=== PATIENT | male | born 1985 | race Caucasian/White ===

== ENCOUNTER 2021-02-26 20:20 | Inpatient (IN) | payer BC, OTHER, SELFPAY ==
[~2021-02-26 20:20] MED LIST: Iopamidol-370 76% 500 ML 1 ML ONE
[2021-02-26 20:38] LABS: Actual Bicarbonate (HCO3a) 20.7 mEq/L (22-28); Analyzer IN Cardio ER; Base Excess (BEa) -0.7 mEq/L (-2.0 to +3.0); CO2 Tension 27.3 mmHg (35.0-45.0); Carboxyhemoglobin (COHb) 0.8 gm% (0.0-3.0); Hemoglobin (Hb) 17.3 g/dL (14.0-18.0); O2 Tension (PaO2), arterial 79.3 mmHg (80.0-100.0); Potassium - ABG Lab 3.94 mmol/L (3.70-5.30)
[2021-02-26] MEDS ORDERED: Acetaminophen 500 MG TAB ONE (20:39)
[2021-02-26] MEDS ORDERED: Dexamethasone 4 mg/ml Vial ONE (20:39)
[2021-02-26 20:40] LABS: ALV-art Gradient 599.575 mmHg (0-20); Puncture Site RRA
[2021-02-26 21:29] LABS: Hemoglobin 17.2 g/dL (14.0-18.0); Mean Corpuscular Hemoglobin 34.7 pg (27.0-31.0); Mean Corpuscular Volume 96.3 fL (78.0-98.0); RBC Distribution Width 11.7 % (11.5-14.5); Red Blood Cell (RBC) Count 4.95 mill/uL (4.70-6.10); White Blood Cell (WBC) Count 17.8 thou/uL (4.8-10.8)
[2021-02-26 21:31] LABS: Band 20 % (5-11); Lymphocytes 3 % (21-51); MDiff Complete? YES; Mean Platelet Volume 8.5 fL (7.4-10.4); Monocytes 2 % (0-10); Neutrophil 75 % (42-75); Platelet Count 189 thou/uL (130-400)
[2021-02-26 21:42] LABS: Albumin 3.1 g/dL (3.5-5.0)
[2021-02-26 21:44] LABS: Calcium 7.9 mg/dL (7.8-10.44); Chloride 100 mmol/L (98-107); Potassium 4.3 mmol/L (3.5-5.1); Sodium 135 mmol/L (136-145)
[2021-02-26 21:45] LABS: Globulin 2.6 g/dL (2.4-3.5); Glucose 121 mg/dL (70-105); Protein, Total 5.7 g/dL (6.0-8.3)
[2021-02-26 21:46] LABS: Anion Gap 14 mmol/L (10-20); Carbon Dioxide 25 mmol/L (22-29)
[2021-02-26 21:47] LABS: Bilirubin, Total 0.7 mg/dL (0.2-1.2)
[2021-02-26 21:48] LABS: Alkaline Phosphatase 77 U/L (40-110)
[2021-02-26 21:49] LABS: BUN (Urea Nitrogen) 28 mg/dL (8.9-20.6); Calc. Creatinine Clearance 0 mL/min (70-130)
[2021-02-26 21:50] LABS: AST (SGOT) 82 U/L (5-34)
[2021-02-26 21:51] LABS: ALT (SGPT) 50 U/L (8-55)
[2021-02-26] MEDS ORDERED: Vancomycin 1 GM/200 ML BAG ONE (21:59)
[2021-02-26] MEDS ORDERED: Enoxaparin Sodium 80 MG/0.8 ML SYRINGE ONE (21:59)
[2021-02-26] MEDS ORDERED: Cefepime 2 GM VIAL ONE (21:59)
[2021-02-26] MEDS ORDERED: Enoxaparin Sodium 60 MG/0.6 ML SYRINGE ONE (21:59)
[2021-02-26] MEDS ORDERED: Enoxaparin Sodium 40 MG/0.4 ML SYRINGE ONE (22:00)
[2021-02-26] MEDS ORDERED: Ondansetron ODT 4 MG TAB PO PRN (23:37)
[2021-02-27 00:24] LABS: Lactic Acid 1.4 mmol/L (0.5-2.2)
[2021-02-27] MEDS ORDERED: traZODone HCl 50 MG TAB PO SCH (00:30)
[2021-02-27] MEDS ORDERED: Morphine 2 MG/ML VIAL SLOW IVP SCH (03:30)
[2021-02-27] MEDS ORDERED: Pantoprazole 40 MG VIAL IVP SCH (03:30)
[2021-02-27 04:35] LABS: Hemoglobin 16.3 g/dL (14.0-18.0); Mean Corpuscular HGB CONC 34.2 g/dL (32.0-36.0); Mean Corpuscular Hemoglobin 33.1 pg (27.0-31.0); Mean Corpuscular Volume 96.7 fL (78.0-98.0); Mean Platelet Volume 8.8 fL (7.4-10.4); Platelet Count 175 thou/uL (130-400); RBC Distribution Width 11.7 % (11.5-14.5); Red Blood Cell (RBC) Count 4.93 mill/uL (4.70-6.10); White Blood Cell (WBC) Count 17.2 thou/uL (4.8-10.8)
[2021-02-27 04:41] LABS: Anion Gap 14 mmol/L (10-20); BUN (Urea Nitrogen) 26 mg/dL (8.9-20.6); Calc. Creatinine Clearance 162 mL/min (70-130); Calcium 8.5 mg/dL (7.8-10.44); Carbon Dioxide 21 mmol/L (22-29); Chloride 104 mmol/L (98-107); Glucose 141 mg/dL (70-105); Potassium 4.4 mmol/L (3.5-5.1); Sodium 135 mmol/L (136-145)
[2021-02-27 05:55] LABS: Band 16 % (5-11); Lymphocytes 5 % (21-51); MDiff Complete? YES; Monocytes 1 % (0-10); Neutrophil 78 % (42-75)
[2021-02-27] MEDS: Acetaminophen 325 MG TAB PO PRN ×3 (06:24→23:08)
[2021-02-27] MEDS ORDERED: Bisacodyl 5 MG TAB PO PRN (07:09)
[2021-02-27] MEDS ORDERED: Hydrocerin (Eucerin) Cream 120 gm Jar TOP PRN (07:09)
[2021-02-27] MEDS ORDERED: Calcium Carbonate 500 MG ChewTAB PO PRN (07:09)
[2021-02-27] MEDS ORDERED: Sodium Chloride 0.65% Nasal 44 ML BOT EA NARE PRN (07:09)
[2021-02-27] MEDS ORDERED: hydrALAZINE 20 MG/ML VIAL SLOW IVP PRN (07:09)
[2021-02-27] MEDS ORDERED: Loratadine 10 MG TAB PO PRN (07:09)
[2021-02-27] MEDS ORDERED: Cepastat Lozenges 1 LOZ PO PRN (07:09)
[2021-02-27] MEDS ORDERED: Artificial Tear Sol 15 ML BOT EA EYE PRN (07:09)
[2021-02-27] MEDS ORDERED: Albuterol 200 PUFF (6.7GM INHALER) INH PRN (07:23)
[2021-02-27] MEDS: Cholecalciferol 1,000 UNITS (25 MCG) TAB PO SCH (08:27)
[2021-02-27] MEDS: Ascorbic Acid 500 mg Chewable Tablet PO SCH (08:27)
[2021-02-27] MEDS: Pantoprazole 40 MG VIAL IVP SCH (08:27)
[2021-02-27] MEDS: Enoxaparin Sodium 120 MG/0.8 ML SYRINGE SC SCH ×2 (08:27→19:56)
[2021-02-27] MEDS: Zinc Sulfate 220 MG CAP PO SCH (08:28)
[2021-02-27] MEDS ORDERED: Dexamethasone 4 mg/ml Vial SLOW IVP SCH (09:00)
[2021-02-27] MEDS ORDERED: Cholecalciferol (Vitamin D3) 400 UNITS TAB PO SCH (09:00)
[2021-02-27] MEDS: methylPREDNISolone Sod Succ/PF 125 MG in Sodium Chloride 0.9% 250 ML 250 ML IVPB SCH (11:29)
[2021-02-27] MEDS: Benzonatate 100 MG CAP PO PRN ×2 (12:59→23:08)
[2021-02-27] MEDS: GUAIFENESIN SF SOLN 200 MG/10 ML UDCUP PO PRN ×2 (17:52→23:07)
[2021-02-27] MEDS: Colchicine 0.6 MG TAB PO SCH (19:58)
[2021-02-28] MEDS: Acetaminophen 325 MG TAB PO PRN ×2 (03:47→08:21)
[2021-02-28] MEDS: GUAIFENESIN SF SOLN 200 MG/10 ML UDCUP PO PRN ×3 (03:47→21:41)
[2021-02-28] MEDS: Benzonatate 100 MG CAP PO PRN ×2 (03:47→21:41)
[2021-02-28 04:21] LABS: #Lymphocytes 0.6 thou/uL (1.20-3.40); #Monocytes 0.4 thou/uL (0.11-0.59); #Neutrophils 12.1 thou/uL (1.40-6.50); %Basophils 0.1 % (0.0-1.0); %Lymphocytes 4.7 % (21.0-51.0); %Neutrophils 92.1 % (42.0-75.0); Hemoglobin 15.7 g/dL (14.0-18.0); Mean Corpuscular HGB CONC 34.6 g/dL (32.0-36.0); Mean Corpuscular Hemoglobin 33.6 pg (27.0-31.0); Mean Corpuscular Volume 96.9 fL (78.0-98.0); Mean Platelet Volume 8.6 fL (7.4-10.4); Platelet Count 209 thou/uL (130-400); RBC Distribution Width 11.5 % (11.5-14.5); Red Blood Cell (RBC) Count 4.67 mill/uL (4.70-6.10); White Blood Cell (WBC) Count 13.1 thou/uL (4.8-10.8)
[2021-02-28 04:43] LABS: ALT (SGPT) 41 U/L (8-55); AST (SGOT) 39 U/L (5-34); Albumin 2.6 g/dL (3.5-5.0); Alkaline Phosphatase 67 U/L (40-110); Anion Gap 12 mmol/L (10-20); BUN (Urea Nitrogen) 27 mg/dL (8.9-20.6); Bilirubin, Total 0.7 mg/dL (0.2-1.2); Calc. Creatinine Clearance 174 mL/min (70-130); Calcium 8.5 mg/dL (7.8-10.44); Carbon Dioxide 23 mmol/L (22-29); Chloride 103 mmol/L (98-107); Glucose 159 mg/dL (70-105); Potassium 4.3 mmol/L (3.5-5.1); Protein, Total 5.6 g/dL (6.0-8.3); Sodium 134 mmol/L (136-145)
[2021-02-28] MEDS: Enoxaparin Sodium 120 MG/0.8 ML SYRINGE SC SCH ×2 (08:16→21:41)
[2021-02-28] MEDS: Cholecalciferol 1,000 UNITS (25 MCG) TAB PO SCH (08:17)
[2021-02-28] MEDS: Pantoprazole 40 MG VIAL IVP SCH (08:17)
[2021-02-28] MEDS: Ascorbic Acid 500 mg Chewable Tablet PO SCH (08:17)
[2021-02-28] MEDS: Colchicine 0.6 MG TAB PO SCH ×2 (08:17→21:41)
[2021-02-28] MEDS: Zinc Sulfate 220 MG CAP PO SCH (08:17)
[2021-02-28] MEDS: methylPREDNISolone Sod Succ/PF 125 MG in Sodium Chloride 0.9% 250 ML 250 ML IVPB SCH (10:59)
[2021-03-01] MEDS: Zinc Sulfate 220 MG CAP PO SCH (08:19)
[2021-03-01] MEDS: Colchicine 0.6 MG TAB PO SCH ×2 (08:19→20:05)
[2021-03-01] MEDS: Ascorbic Acid 500 mg Chewable Tablet PO SCH (08:19)
[2021-03-01] MEDS: Cholecalciferol 1,000 UNITS (25 MCG) TAB PO SCH (08:19)
[2021-03-01] MEDS: Benzonatate 100 MG CAP PO PRN ×2 (08:20→20:05)
[2021-03-01] MEDS: Enoxaparin Sodium 120 MG/0.8 ML SYRINGE SC SCH ×2 (08:20→20:05)
[2021-03-01] MEDS: GUAIFENESIN SF SOLN 200 MG/10 ML UDCUP PO PRN ×2 (08:20→20:05)
[2021-03-01] MEDS: Pantoprazole 40 MG GRANULES PACKET PO SCH (08:20)
[2021-03-01] MEDS: methylPREDNISolone Sod Succ/PF 125 MG in Sodium Chloride 0.9% 250 ML 250 ML IVPB SCH (08:26)
[2021-03-01] MEDS: HYDROcodone/Acetaminophen 5/325 mg Tablet PO PRN ×2 (10:57→21:50)
[2021-03-01] MEDS: Morphine 4 MG/ML VIAL SLOW IVP PRN ×3 (16:49→23:37)
[2021-03-01] MEDS: guaiFENesin ER 600 MG TAB PO SCH (20:05)
[2021-03-01] MEDS: Senokot S 8.6-50 MG TAB PO PRN (20:07)
[2021-03-02] MEDS: HYDROcodone/Acetaminophen 5/325 mg Tablet PO PRN ×3 (01:51→21:00)
[2021-03-02 04:00] LABS: Anion Gap 10 mmol/L (10-20); BUN (Urea Nitrogen) 22 mg/dL (8.9-20.6); CRP (Inflammatory) 12.89 mg/dL (= or < 0.5); Calc. Creatinine Clearance 208 mL/min (70-130); Calcium 8.1 mg/dL (7.8-10.44); Carbon Dioxide 24 mmol/L (22-29); Chloride 101 mmol/L (98-107); Glucose 128 mg/dL (70-105); Magnesium 2.3 mg/dL (1.6-2.6); Phosphorus 2.5 mg/dL (2.3-4.7); Potassium 4.7 mmol/L (3.5-5.1); Sodium 130 mmol/L (136-145)
[2021-03-02 04:40] LABS: Hemoglobin 15.6 g/dL (14.0-18.0); Mean Corpuscular HGB CONC 34.7 g/dL (32.0-36.0); Mean Corpuscular Hemoglobin 33.3 pg (27.0-31.0); Mean Corpuscular Volume 96.1 fL (78.0-98.0); Mean Platelet Volume 8.4 fL (7.4-10.4); Platelet Count 238 thou/uL (130-400); RBC Distribution Width 11.4 % (11.5-14.5); Red Blood Cell (RBC) Count 4.68 mill/uL (4.70-6.10); White Blood Cell (WBC) Count 16.1 thou/uL (4.8-10.8)
[2021-03-02 04:42] LABS: Band 11 % (5-11); Lymphocytes 8 % (21-51); MDiff Complete? YES; Neutrophil 81 % (42-75); RBC Morphology Normal; Toxic Granulation SLIGHT
[2021-03-02] MEDS: Morphine 4 MG/ML VIAL SLOW IVP PRN ×5 (04:56→15:36)
[2021-03-02] MEDS: Zinc Sulfate 220 MG CAP PO SCH (08:06)
[2021-03-02] MEDS: guaiFENesin ER 600 MG TAB PO SCH ×2 (08:07→21:01)
[2021-03-02] MEDS: Enoxaparin Sodium 120 MG/0.8 ML SYRINGE SC SCH ×2 (08:07→20:59)
[2021-03-02] MEDS: Pantoprazole 40 MG GRANULES PACKET PO SCH (08:07)
[2021-03-02] MEDS: Cholecalciferol 1,000 UNITS (25 MCG) TAB PO SCH (08:07)
[2021-03-02] MEDS: Ascorbic Acid 500 mg Chewable Tablet PO SCH (08:07)
[2021-03-02] MEDS: Colchicine 0.6 MG TAB PO SCH ×2 (08:07→21:00)
[2021-03-02] MEDS: GUAIFENESIN SF SOLN 200 MG/10 ML UDCUP PO PRN ×2 (08:10→21:06)
[2021-03-02] MEDS: Benzonatate 100 MG CAP PO PRN ×2 (08:10→21:06)
[2021-03-02] MEDS ORDERED: fentaNYL 75 mcg/hour Patch TD SCH (10:00)
[2021-03-02] MEDS: methylPREDNISolone Sod Succ/PF 125 MG in Sodium Chloride 0.9% 250 ML 250 ML IVPB SCH (10:26)
[2021-03-02] MEDS: Senokot S 8.6-50 MG TAB PO PRN (21:06)
[2021-03-03] MEDS: HYDROcodone/Acetaminophen 5/325 mg Tablet PO PRN ×3 (02:24→20:03)
[2021-03-03] MEDS: GUAIFENESIN SF SOLN 200 MG/10 ML UDCUP PO PRN ×3 (02:24→20:04)
[2021-03-03 04:18] LABS: Anion Gap 12 mmol/L (10-20); BUN (Urea Nitrogen) 18 mg/dL (8.9-20.6); Calc. Creatinine Clearance 204 mL/min (70-130); Calcium 8.9 mg/dL (7.8-10.44); Carbon Dioxide 25 mmol/L (22-29); Chloride 97 mmol/L (98-107); Glucose 171 mg/dL (70-105); Potassium 5.1 mmol/L (3.5-5.1); Sodium 129 mmol/L (136-145)
[2021-03-03 04:40] LABS: Band 7 % (5-11); Hemoglobin 15.8 g/dL (14.0-18.0); Lymphocytes 1 % (21-51); MDiff Complete? YES; Mean Corpuscular HGB CONC 35.4 g/dL (32.0-36.0); Mean Corpuscular Hemoglobin 34.4 pg (27.0-31.0); Mean Platelet Volume 8.7 fL (7.4-10.4); Monocytes 2 % (0-10); Neutrophil 90 % (42-75); Platelet Count 238 thou/uL (130-400); Platelet Morphology Comment Appears Adequate; RBC Distribution Width 11.2 % (11.5-14.5); RBC Morphology Normal; Red Blood Cell (RBC) Count 4.59 mill/uL (4.70-6.10); White Blood Cell (WBC) Count 25.7 thou/uL (4.8-10.8)
[2021-03-03] MEDS: guaiFENesin ER 600 MG TAB PO SCH ×2 (08:16→20:03)
[2021-03-03] MEDS: Colchicine 0.6 MG TAB PO SCH (08:16)
[2021-03-03] MEDS: Enoxaparin Sodium 120 MG/0.8 ML SYRINGE SC SCH ×2 (08:16→20:03)
[2021-03-03] MEDS: Ascorbic Acid 500 mg Chewable Tablet PO SCH (08:16)
[2021-03-03] MEDS: Cholecalciferol 1,000 UNITS (25 MCG) TAB PO SCH (08:16)
[2021-03-03] MEDS: Zinc Sulfate 220 MG CAP PO SCH (08:16)
[2021-03-03] MEDS: methylPREDNISolone Sod Succ/PF 125 MG in Sodium Chloride 0.9% 250 ML 250 ML IVPB SCH (08:17)
[2021-03-03] MEDS: Pantoprazole 40 MG GRANULES PACKET PO SCH (08:17)
[2021-03-03] MEDS: Morphine 4 MG/ML VIAL SLOW IVP PRN ×3 (11:57→22:23)
[2021-03-03] MEDS: Enalaprilat Dihydrate 1.25 MG/ML VIAL SLOW IVP SCH (20:02)
[2021-03-03] MEDS: Senokot S 8.6-50 MG TAB PO PRN (20:03)
[2021-03-03] MEDS: Benzonatate 100 MG CAP PO PRN (20:03)
[2021-03-03] MEDS: Acetaminophen 325 MG TAB PO PRN (22:23)
[2021-03-03] MEDS ORDERED: Enalaprilat Dihydrate 1.25 MG/ML VIAL SLOW IVP SCH (23:59)
[2021-03-04] MEDS: HYDROcodone/Acetaminophen 5/325 mg Tablet PO PRN ×4 (00:05→13:23)
[2021-03-04] MEDS: Morphine 4 MG/ML VIAL SLOW IVP PRN ×3 (00:12→13:26)
[2021-03-04] MEDS: GUAIFENESIN SF SOLN 200 MG/10 ML UDCUP PO PRN ×3 (00:16→13:24)
[2021-03-04 01:25] LABS: Hemoglobin 15.6 g/dL (14.0-18.0); Mean Corpuscular HGB CONC 35.1 g/dL (32.0-36.0); Mean Corpuscular Hemoglobin 33.9 pg (27.0-31.0); Mean Corpuscular Volume 96.4 fL (78.0-98.0); Mean Platelet Volume 8.6 fL (7.4-10.4); Platelet Count 304 thou/uL (130-400); RBC Distribution Width 11.2 % (11.5-14.5); White Blood Cell (WBC) Count 29.6 thou/uL (4.8-10.8)
[2021-03-04 01:35] LABS: Bacteria/HPF None Seen HPF (None Seen); Bilirubin Negative (Negative); Blood, Urine Trace (Negative); Clarity Clear (Clear); Glucose, Urine (Dipstick) Normal (Negative); Ketone, Urine Negative (Negative); Leukocyte Negative Leu/uL (Negative); Nitrite Negative (Negative); Protein, Urine (Dipstick) 70 mg/dL (Neg-Trace); Specific Gravity, Urine 1.032 (1.002-1.036); Squamous Epithelial None Seen HPF (0-3); Urobilinogen 6 mg/dL (Less than 2); WBC/HPF 0-3 HPF (0-3)
[2021-03-04 01:36] LABS: Urine Culture Reflex No No
[2021-03-04] MEDS: Benzonatate 100 MG CAP PO PRN ×2 (01:36→08:25)
[2021-03-04 01:47] LABS: ALT (SGPT) 44 U/L (8-55); AST (SGOT) 26 U/L (5-34); Albumin 2.6 g/dL (3.5-5.0); Alkaline Phosphatase 90 U/L (40-110); Anion Gap 12 mmol/L (10-20); BUN (Urea Nitrogen) 20 mg/dL (8.9-20.6); Bilirubin, Total 1.3 mg/dL (0.2-1.2); Calc. Creatinine Clearance 199 mL/min (70-130); Calcium 8.7 mg/dL (7.8-10.44); Carbon Dioxide 26 mmol/L (22-29); Chloride 91 mmol/L (98-107); Globulin 3.9 g/dL (2.4-3.5); Glucose 149 mg/dL (70-105); Protein, Total 6.5 g/dL (6.0-8.3); Sodium 124 mmol/L (136-145)
[2021-03-04 01:47] LABS: Band 17 % (5-11); MDiff Complete? YES; Monocytes 1 % (0-10); Neutrophil 82 % (42-75); Platelet Morphology Comment Appears Adequate; RBC Morphology Normal
[2021-03-04] MEDS: Enalaprilat Dihydrate 1.25 MG/ML VIAL SLOW IVP SCH ×3 (01:47→14:19)
[2021-03-04] MEDS: Colchicine 0.6 MG TAB PO SCH (08:23)
[2021-03-04] MEDS: Cholecalciferol 1,000 UNITS (25 MCG) TAB PO SCH (08:23)
[2021-03-04] MEDS: Acetaminophen 325 MG TAB PO PRN (08:23)
[2021-03-04] MEDS: Zinc Sulfate 220 MG CAP PO SCH (08:23)
[2021-03-04] MEDS: guaiFENesin ER 600 MG TAB PO SCH ×2 (08:25→20:56)
[2021-03-04] MEDS: Ascorbic Acid 500 mg Chewable Tablet PO SCH (08:25)
[2021-03-04] MEDS: Senokot S 8.6-50 MG TAB PO SCH ×3 (08:26→20:56)
[2021-03-04] MEDS: Enoxaparin Sodium 120 MG/0.8 ML SYRINGE SC SCH (08:26)
[2021-03-04] MEDS: Pantoprazole 40 MG GRANULES PACKET PO SCH (08:26)
[2021-03-04] MEDS: Polyethylene Glycol 3350 17 GM Packet PO SCH (08:26)
[2021-03-04] MEDS: methylPREDNISolone Sod Succ/PF 125 MG in Sodium Chloride 0.9% 250 ML 250 ML IVPB SCH (08:30)
[2021-03-04] MEDS ORDERED: NIFEdipine XL 30 MG TAB PO SCH (10:00)
[2021-03-04] MEDS: cloNIDine 0.1 MG TAB PO PRN (13:39)
[2021-03-04] MEDS ORDERED: Fentanyl CADD 100 ML ONE (15:57)
[2021-03-04] MEDS ORDERED: Propofol 1,000 MG/100 ML VIAL IV ONE (16:02)
[2021-03-04] MEDS ORDERED: Vecuronium 10 MG VIAL ONE ×2 (16:40→17:20)
[2021-03-04] MEDS ORDERED: Lidocaine 1% (PF) 30 ML VIAL ONE (16:42)
[2021-03-04 17:30] LABS: Actual Bicarbonate (HCO3a) 28.4 mEq/L (22-28); Base Excess (BEa) -0.7 mEq/L (-2.0 to +3.0); Calcium, Ionized (arterial) 1.15 mmol/L (1.12-1.30); Carboxyhemoglobin (COHb) 1.6 gm% (0.0-3.0); Hemoglobin (Hb) 15.1 g/dL (14.0-18.0); Potassium - ABG Lab 4.95 mmol/L (3.70-5.30)
[2021-03-04 17:33] LABS: CO2 Tension 66.9 mmHg (35.0-45.0); O2 Tension (PaO2), arterial 56.5 mmHg (80.0-100.0); pH, Arterial 7.25 (7.35-7.45)
[2021-03-04 17:34] LABS: ALV-art Gradient 287.675 mmHg (0-20); Puncture Site LRA
[2021-03-04] MEDS ORDERED: Ventilator Sedation Protocol 1 EACH FS ONE (17:37)
[2021-03-04] MEDS ORDERED: Rocuronium Bromide 10 MG/ML (10ML VIAL) IVP PRN (18:03)
[2021-03-04] MEDS ORDERED: Vecuronium Bromide 20 MG VIAL IV PRN (18:05)
[2021-03-04] MEDS ORDERED: MEROPENEM 1 GM/50 ML 1 GM in Premix Bag 1 BAG IVPB SCH (18:30)
[2021-03-04] MEDS: MEROPENEM 1 GM/50 ML 1 GM in Premix Bag 1 BAG IVPB SCH ×2 (18:32→19:49)
[2021-03-04] MEDS ORDERED: Propofol BOLUS 1,000 MG/100 ML VIAL IV PRN (18:45)
[2021-03-04] MEDS ORDERED: DISCONTINUE PREVIOUS NARCOTIC PAIN MEDICATIONS AND BENZODIAZEPINES FS SCH (18:45)
[2021-03-04] MEDS ORDERED: Fentanyl BOLUS 250 ML IVPB PRN (18:45)
[2021-03-04] MEDS ORDERED: Vancomycin 1 GM in Premix Bag 1 BAG IVPB SCH (20:00)
[2021-03-04] MEDS: Propofol 1,000 MG/100 ML VIAL IV PRN (20:49)
[2021-03-04] MEDS: Pantoprazole 40 MG VIAL IVP SCH (20:56)
[2021-03-04] MEDS: Enoxaparin Sodium 100 MG/ML SYRINGE SC SCH (20:56)
[2021-03-04] MEDS ORDERED: Meropenem 2 GM in Admixture Fee 1 EACH IVPB SCH (22:00)
[2021-03-04] MEDS: Sodium Chloride 0.45% 1,000 ML IV SCH (23:22)
[2021-03-04] MEDS ORDERED: VANCOMYCIN 1.75 GM/350 ML BAG 1.75 GM in Premix Bag 1 BAG IVPB SCH (23:59)
[2021-03-05] MEDS: Propofol 1,000 MG/100 ML VIAL IV PRN ×7 (00:29→22:36)
[2021-03-05] MEDS ORDERED: Vancomycin HCl 750 MG in Sodium Chloride 0.9% 250 ML 250 ML IVPB SCH (00:30)
[2021-03-05] MEDS: MEROPENEM 1 GM/50 ML 1 GM in Premix Bag 1 BAG IVPB SCH ×3 (01:56→18:17)
[2021-03-05] MEDS: Acetaminophen 650 MG Suppository PR PRN ×2 (02:59→11:21)
[2021-03-05] MEDS ORDERED: Fentanyl CADD 100 ML ONE ×2 (03:09→13:37)
[2021-03-05] MEDS: Fentanyl CADD 100 ML IV SCH ×2 (03:15→13:41)
[2021-03-05] MEDS ORDERED: Vecuronium 10 MG VIAL ONE ×2 (04:54→14:29)
[2021-03-05 05:38] LABS: Anion Gap 14 mmol/L (10-20); BUN (Urea Nitrogen) 26 mg/dL (8.9-20.6); Calc. Creatinine Clearance 175 mL/min (70-130); Calcium 8.5 mg/dL (7.8-10.44); Carbon Dioxide 27 mmol/L (22-29); Chloride 99 mmol/L (98-107); Glucose 187 mg/dL (70-105); Potassium 5.7 mmol/L (3.5-5.1); Sodium 134 mmol/L (136-145)
[2021-03-05 05:52] LABS: Band 33 % (5-11); Hemoglobin 14.2 g/dL (14.0-18.0); Lymphocytes 2 % (21-51); MDiff Complete? YES; Mean Corpuscular HGB CONC 31.8 g/dL (32.0-36.0); Mean Corpuscular Volume 97.6 fL (78.0-98.0); Mean Platelet Volume 9.4 fL (7.4-10.4); Metamyelocyte 3 % (0-0); Monocytes 3 % (0-10); Neutrophil 59 % (42-75); Platelet Count 231 thou/uL (130-400); Platelet Morphology Comment Appears Adequate; RBC Distribution Width 11.3 % (11.5-14.5); Red Blood Cell (RBC) Count 4.59 mill/uL (4.70-6.10); White Blood Cell (WBC) Count 13.2 thou/uL (4.8-10.8)
[2021-03-05 07:11] LABS: Actual Bicarbonate (HCO3a) 26.4 mEq/L (22-28); Base Excess (BEa) 0.5 mEq/L (-2.0 to +3.0); CO2 Tension 47.3 mmHg (35.0-45.0); Calcium, Ionized (arterial) 1.16 mmol/L (1.12-1.30); Carboxyhemoglobin (COHb) 0.8 gm% (0.0-3.0); Hemoglobin (Hb) 15.3 g/dL (14.0-18.0); Potassium - ABG Lab 5.39 mmol/L (3.70-5.30); pH, Arterial 7.37 (7.35-7.45)
[2021-03-05 07:12] LABS: O2 Tension (PaO2), arterial 55.4 mmHg (80.0-100.0)
[2021-03-05 07:13] LABS: ALV-art Gradient 313.275 mmHg (0-20); Puncture Site LRA
[2021-03-05] MEDS: VANCOMYCIN 1.75 GM/350 ML BAG 1.75 GM in Premix Bag 1 BAG IVPB SCH ×2 (07:50→15:48)
[2021-03-05] MEDS: Senokot S 8.6-50 MG TAB PO SCH ×2 (07:58→21:02)
[2021-03-05] MEDS: Zinc Sulfate 220 MG CAP PO SCH (07:59)
[2021-03-05] MEDS: Cholecalciferol 1,000 UNITS (25 MCG) TAB PO SCH (07:59)
[2021-03-05] MEDS: Ascorbic Acid 500 mg Chewable Tablet PO SCH (07:59)
[2021-03-05] MEDS: Enoxaparin Sodium 100 MG/ML SYRINGE SC SCH ×2 (08:00→21:02)
[2021-03-05] MEDS: Polyethylene Glycol 3350 17 GM Packet PO SCH (08:01)
[2021-03-05] MEDS: Pantoprazole 40 MG VIAL IVP SCH ×2 (08:02→21:03)
[2021-03-05] MEDS: Colchicine 0.6 MG TAB PO SCH (08:08)
[2021-03-05] MEDS: guaiFENesin ER 600 MG TAB PO SCH (08:08)
[2021-03-05] MEDS ORDERED: NIFEdipine XL 30 MG TAB PO SCH (09:00)
[2021-03-05] MEDS ORDERED: Enoxaparin Sodium 100 MG/ML SYRINGE SC SCH (09:00)
[2021-03-05] MEDS ORDERED: guaiFENesin 200 MG TAB PO SCH (11:00)
[2021-03-05] MEDS: methylPREDNISolone Sod Succ/PF 125 MG in Sodium Chloride 0.9% 250 ML 250 ML IVPB SCH (11:09)
[2021-03-05] MEDS: Dexmedetomidine 1,000 MCG in Sodium Chloride 0.9% 250 ML 240 ML IVPB SCH ×2 (13:26→19:24)
[2021-03-05] MEDS: Vecuronium 10 MG VIAL IV PRN ×2 (18:06→22:37)
[2021-03-05] MEDS: Acetaminophen 650 MG/20.3 ML UDCUP PO PRN (18:17)
[2021-03-05] MEDS: guaiFENesin 200 MG TAB PO SCH (21:02)
[2021-03-05 23:43] LABS: Vancomycin, Trough 11.5 ug/mL
[2021-03-06] MEDS: VANCOMYCIN 1.75 GM/350 ML BAG 1.75 GM in Premix Bag 1 BAG IVPB SCH (00:21)
[2021-03-06] MEDS ORDERED: Fentanyl CADD 100 ML ONE ×3 (00:21→22:39)
[2021-03-06] MEDS: VANCOMYCIN 2 GRAM/400 ML BAG 2 GM in Premix Bag 1 BAG IVPB SCH ×3 (00:27→16:08)
[2021-03-06] MEDS: Sodium Chloride 0.45% 1,000 ML IV SCH ×2 (00:27→23:03)
[2021-03-06] MEDS: Dexmedetomidine 1,000 MCG in Sodium Chloride 0.9% 250 ML 240 ML IVPB SCH ×4 (00:27→19:08)
[2021-03-06] MEDS: Fentanyl CADD 100 ML IV SCH ×2 (00:28→22:42)
[2021-03-06] MEDS: Propofol 1,000 MG/100 ML VIAL IV PRN ×8 (00:28→23:04)
[2021-03-06] MEDS: MEROPENEM 1 GM/50 ML 1 GM in Premix Bag 1 BAG IVPB SCH ×2 (02:15→10:00)
[2021-03-06 04:30] LABS: Anion Gap 11 mmol/L (10-20); BUN (Urea Nitrogen) 29 mg/dL (8.9-20.6); Calc. Creatinine Clearance 192 mL/min (70-130); Calcium 8.1 mg/dL (7.8-10.44); Carbon Dioxide 29 mmol/L (22-29); Chloride 100 mmol/L (98-107); Glucose 186 mg/dL (70-105); Potassium 5.4 mmol/L (3.5-5.1); Sodium 135 mmol/L (136-145)
[2021-03-06 04:36] LABS: Band 8 % (5-11); Hemoglobin 13.9 g/dL (14.0-18.0); Lymphocytes 4 % (21-51); MDiff Complete? YES; Mean Corpuscular HGB CONC 33.4 g/dL (32.0-36.0); Mean Corpuscular Hemoglobin 33.4 pg (27.0-31.0); Mean Corpuscular Volume 99.9 fL (78.0-98.0); Mean Platelet Volume 9.4 fL (7.4-10.4); Neutrophil 86 % (42-75); Platelet Count 224 thou/uL (130-400); Platelet Morphology Comment Appears Adequate; RBC Distribution Width 11.4 % (11.5-14.5); RBC Morphology Normal; Reactive Lymphocytes 2 % (0-10); Red Blood Cell (RBC) Count 4.15 mill/uL (4.70-6.10); White Blood Cell (WBC) Count 14.8 thou/uL (4.8-10.8)
[2021-03-06] MEDS: Vecuronium 10 MG VIAL IV PRN ×5 (04:42→14:09)
[2021-03-06 07:27] LABS: Actual Bicarbonate (HCO3a) 27.6 mEq/L (22-28); Base Excess (BEa) 2.9 mEq/L (-2.0 to +3.0); CO2 Tension 42.3 mmHg (35.0-45.0); Calcium, Ionized (arterial) 1.16 mmol/L (1.12-1.30); Carboxyhemoglobin (COHb) 0.9 gm% (0.0-3.0); Hemoglobin (Hb) 14.6 g/dL (14.0-18.0); Potassium - ABG Lab 4.94 mmol/L (3.70-5.30); pH, Arterial 7.43 (7.35-7.45)
[2021-03-06 07:32] LABS: O2 Tension (PaO2), arterial 53.3 mmHg (80.0-100.0); Puncture Site RRA
[2021-03-06 07:33] LABS: ALV-art Gradient 250.325 mmHg (0-20)
[2021-03-06] MEDS: Acetaminophen 650 MG/20.3 ML UDCUP PO PRN (07:53)
[2021-03-06] MEDS: Enoxaparin Sodium 100 MG/ML SYRINGE SC SCH ×2 (08:04→20:19)
[2021-03-06] MEDS: Pantoprazole 40 MG VIAL IVP SCH ×2 (08:04→20:18)
[2021-03-06] MEDS: Polyethylene Glycol 3350 17 GM Packet PO SCH (08:04)
[2021-03-06] MEDS: guaiFENesin 200 MG TAB PO SCH ×2 (08:05→20:18)
[2021-03-06] MEDS: Cholecalciferol 1,000 UNITS (25 MCG) TAB PO SCH (08:05)
[2021-03-06] MEDS: Senokot S 8.6-50 MG TAB PO SCH ×2 (08:05→20:18)
[2021-03-06] MEDS: Ascorbic Acid 500 mg Chewable Tablet PO SCH (08:05)
[2021-03-06] MEDS: Zinc Sulfate 220 MG CAP PO SCH (08:05)
[2021-03-06] MEDS: Colchicine 0.6 MG TAB PO SCH (08:06)
[2021-03-06] MEDS ORDERED: cloNIDine 0.1 MG TAB PO SCH ×2 (11:00→21:00)
[2021-03-06 12:01] LABS: Lactic Acid 1.4 mmol/L (0.5-2.2)
[2021-03-06 12:35] LABS: Vancomycin, Trough 25.1 ug/mL
[2021-03-06] MEDS: methylPREDNISolone Sod Succ/PF 125 MG in Sodium Chloride 0.9% 250 ML 250 ML IVPB SCH (13:58)
[2021-03-06] MEDS ORDERED: Oxacillin 2 GM in Sodium Chloride 0.9% 100 ML IVPB SCH (17:00)
[2021-03-06] MEDS ORDERED: VANCOMYCIN IVPB SCH (18:00)
[2021-03-06] MEDS: cloNIDine 0.1 MG TAB PO SCH (20:18)
[2021-03-06] MEDS: Oxacillin 2 GM in Sodium Chloride 0.9% 100 ML IVPB SCH (23:23)
[2021-03-07] MEDS: Dexmedetomidine 1,000 MCG in Sodium Chloride 0.9% 250 ML 240 ML IVPB SCH ×4 (01:09→18:21)
[2021-03-07] MEDS: cloNIDine 0.1 MG TAB PO PRN (01:27)
[2021-03-07] MEDS: Propofol 1,000 MG/100 ML VIAL IV PRN ×7 (02:02→20:54)
[2021-03-07] MEDS: Oxacillin 2 GM in Sodium Chloride 0.9% 100 ML IVPB SCH ×5 (04:08→20:54)
[2021-03-07 05:18] LABS: Hemoglobin 13.6 g/dL (14.0-18.0); Mean Corpuscular HGB CONC 35.3 g/dL (32.0-36.0); Mean Corpuscular Hemoglobin 34.6 pg (27.0-31.0); Mean Corpuscular Volume 97.9 fL (78.0-98.0); Mean Platelet Volume 9.2 fL (7.4-10.4); Platelet Count 208 thou/uL (130-400); RBC Distribution Width 11.2 % (11.5-14.5); Red Blood Cell (RBC) Count 3.92 mill/uL (4.70-6.10); White Blood Cell (WBC) Count 10.5 thou/uL (4.8-10.8)
[2021-03-07 05:19] LABS: Band 6 % (5-11); Lymphocytes 3 % (21-51); MDiff Complete? YES; Monocytes 1 % (0-10); Neutrophil 90 % (42-75); Platelet Morphology Comment Appears Adequate; RBC Morphology Normal
[2021-03-07 05:55] LABS: Anion Gap 10 mmol/L (10-20); BUN (Urea Nitrogen) 25 mg/dL (8.9-20.6); Calc. Creatinine Clearance 231 mL/min (70-130); Calcium 7.3 mg/dL (7.8-10.44); Carbon Dioxide 28 mmol/L (22-29); Chloride 103 mmol/L (98-107); Glucose 168 mg/dL (70-105); Potassium 4.3 mmol/L (3.5-5.1); Sodium 137 mmol/L (136-145)
[2021-03-07 07:44] LABS: Actual Bicarbonate (HCO3a) 31.3 mEq/L (22-28); Base Excess (BEa) 6.1 mEq/L (-2.0 to +3.0); Calcium, Ionized (arterial) 1.14 mmol/L (1.12-1.30); Carboxyhemoglobin (COHb) 1.3 gm% (0.0-3.0); Hemoglobin (Hb) 14.7 g/dL (14.0-18.0); pH, Arterial 7.44 (7.35-7.45)
[2021-03-07 07:46] LABS: O2 Tension (PaO2), arterial 57.9 mmHg (80.0-100.0); Puncture Site LRA
[2021-03-07] MEDS: Fentanyl CADD 100 ML IV SCH (08:50)
[2021-03-07] MEDS: guaiFENesin 200 MG TAB PO SCH ×2 (09:15→20:54)
[2021-03-07] MEDS: Zinc Sulfate 220 MG CAP PO SCH (09:15)
[2021-03-07] MEDS: Colchicine 0.6 MG TAB PO SCH (09:16)
[2021-03-07] MEDS: Senokot S 8.6-50 MG TAB PO SCH ×2 (09:16→20:54)
[2021-03-07] MEDS: cloNIDine 0.1 MG TAB PO SCH ×2 (09:16→20:54)
[2021-03-07] MEDS: Polyethylene Glycol 3350 17 GM Packet PO SCH (09:17)
[2021-03-07] MEDS: Ascorbic Acid 500 mg Chewable Tablet PO SCH (09:17)
[2021-03-07] MEDS: Enoxaparin Sodium 100 MG/ML SYRINGE SC SCH ×2 (09:17→20:54)
[2021-03-07] MEDS: Cholecalciferol 1,000 UNITS (25 MCG) TAB PO SCH (09:29)
[2021-03-07] MEDS: Pantoprazole 40 MG VIAL IVP SCH ×2 (09:32→20:55)
[2021-03-07] MEDS: Sodium Chloride 0.45% 1,000 ML IV SCH (10:04)
[2021-03-07] MEDS: Lorazepam 2 MG/ML VIAL SLOW IVP PRN ×4 (10:33→17:54)
[2021-03-07] MEDS: methylPREDNISolone Sod Succ/PF 125 MG in Sodium Chloride 0.9% 250 ML 250 ML IVPB SCH (11:13)
[2021-03-07] MEDS: Vecuronium 10 MG VIAL IV PRN ×2 (13:17→17:53)
[2021-03-07] MEDS: Acetaminophen 650 MG/20.3 ML UDCUP PO PRN (16:38)
[2021-03-08] MEDS: Propofol 1,000 MG/100 ML VIAL IV PRN ×8 (00:01→23:10)
[2021-03-08] MEDS: Oxacillin 2 GM in Sodium Chloride 0.9% 100 ML IVPB SCH ×7 (00:02→23:14)
[2021-03-08] MEDS: Vecuronium 10 MG VIAL IV PRN ×5 (01:03→14:34)
[2021-03-08] MEDS ORDERED: Fentanyl CADD 100 ML ONE ×2 (02:24→21:58)
[2021-03-08] MEDS: Fentanyl CADD 100 ML IV SCH ×2 (02:27→22:03)
[2021-03-08] MEDS: Lorazepam 2 MG/ML VIAL SLOW IVP PRN ×3 (02:34→11:16)
[2021-03-08] MEDS: Dexmedetomidine 1,000 MCG in Sodium Chloride 0.9% 250 ML 240 ML IVPB SCH ×2 (02:57→17:08)
[2021-03-08] MEDS: Acetaminophen 650 MG/20.3 ML UDCUP PO PRN ×2 (03:59→07:57)
[2021-03-08 04:25] LABS: Hemoglobin 14.3 g/dL (14.0-18.0); Mean Corpuscular HGB CONC 34.4 g/dL (32.0-36.0); Mean Corpuscular Hemoglobin 33.7 pg (27.0-31.0); Platelet Count 232 thou/uL (130-400); RBC Distribution Width 11.5 % (11.5-14.5); Red Blood Cell (RBC) Count 4.24 mill/uL (4.70-6.10); White Blood Cell (WBC) Count 11.5 thou/uL (4.8-10.8)
[2021-03-08 04:26] LABS: Band 12 % (5-11); Lymphocytes 2 % (21-51); MDiff Complete? YES; Monocytes 8 % (0-10); Neutrophil 78 % (42-75); Platelet Morphology Comment Appears Adequate; RBC Morphology Normal
[2021-03-08 04:38] LABS: Anion Gap 11 mmol/L (10-20); BUN (Urea Nitrogen) 27 mg/dL (8.9-20.6); Calc. Creatinine Clearance 181 mL/min (70-130); Calcium 7.6 mg/dL (7.8-10.44); Carbon Dioxide 29 mmol/L (22-29); Chloride 100 mmol/L (98-107); Glucose 154 mg/dL (70-105); Potassium 4.8 mmol/L (3.5-5.1); Sodium 135 mmol/L (136-145)
[2021-03-08 07:52] LABS: Actual Bicarbonate (HCO3a) 28.4 mEq/L (22-28); Base Excess (BEa) 4.7 mEq/L (-2.0 to +3.0); CO2 Tension 38.6 mmHg (35.0-45.0); Calcium, Ionized (arterial) 1.12 mmol/L (1.12-1.30); Carboxyhemoglobin (COHb) 1.4 gm% (0.0-3.0); Hemoglobin (Hb) 15.1 g/dL (14.0-18.0); Potassium - ABG Lab 4.53 mmol/L (3.70-5.30); pH, Arterial 7.48 (7.35-7.45)
[2021-03-08 07:59] LABS: O2 Tension (PaO2), arterial 51.6 mmHg (80.0-100.0)
[2021-03-08 08:00] LABS: Puncture Site RRA
[2021-03-08] MEDS: guaiFENesin 200 MG TAB PO SCH ×2 (09:07→20:13)
[2021-03-08] MEDS: Zinc Sulfate 220 MG CAP PO SCH (09:07)
[2021-03-08] MEDS: Cholecalciferol 1,000 UNITS (25 MCG) TAB PO SCH (09:07)
[2021-03-08] MEDS: Enoxaparin Sodium 100 MG/ML SYRINGE SC SCH ×2 (09:07→20:14)
[2021-03-08] MEDS: cloNIDine 0.1 MG TAB PO SCH ×2 (09:07→20:13)
[2021-03-08] MEDS: Senokot S 8.6-50 MG TAB PO SCH ×2 (09:07→20:13)
[2021-03-08] MEDS: Colchicine 0.6 MG TAB PO SCH (09:07)
[2021-03-08] MEDS: Polyethylene Glycol 3350 17 GM Packet PO SCH (09:07)
[2021-03-08] MEDS: Pantoprazole 40 MG VIAL IVP SCH (09:07)
[2021-03-08] MEDS: Ascorbic Acid 500 mg Chewable Tablet PO SCH (09:07)
[2021-03-08] MEDS: methylPREDNISolone Sod Succ/PF 125 MG in Sodium Chloride 0.9% 250 ML 250 ML IVPB SCH (10:48)
[2021-03-08] MEDS ORDERED: Rocuronium Bromide 50 MG/5 ML VIAL IVP SCH (15:55)
[2021-03-08] MEDS: Metoclopramide HCl 10 MG/2 ML VIAL IVP SCH (16:10)
[2021-03-08] MEDS: Acetaminophen 650 MG Suppository PR PRN (17:19)
[2021-03-08] MEDS: Pantoprazole 40 MG GRANULES PACKET PER TUBE SCH (20:13)
[2021-03-08] MEDS: Sodium Chloride 0.45% 1,000 ML IV SCH (21:24)
[2021-03-09] MEDS: Acetaminophen 650 MG/20.3 ML UDCUP PO PRN ×2 (00:13→10:00)
[2021-03-09] MEDS: Dexmedetomidine 1,000 MCG in Sodium Chloride 0.9% 250 ML 240 ML IVPB SCH ×4 (00:29→23:01)
[2021-03-09] MEDS: Metoclopramide HCl 10 MG/2 ML VIAL IVP SCH ×3 (00:41→16:44)
[2021-03-09] MEDS: Propofol 1,000 MG/100 ML VIAL IV PRN ×7 (02:57→23:08)
[2021-03-09] MEDS: Oxacillin 2 GM in Sodium Chloride 0.9% 100 ML IVPB SCH ×6 (03:29→23:35)
[2021-03-09 04:40] LABS: Anion Gap 11 mmol/L (10-20); BUN (Urea Nitrogen) 24 mg/dL (8.9-20.6); Calc. Creatinine Clearance 212 mL/min (70-130); Calcium 7.2 mg/dL (7.8-10.44); Carbon Dioxide 25 mmol/L (22-29); Chloride 100 mmol/L (98-107); Glucose 144 mg/dL (70-105); Potassium 4.1 mmol/L (3.5-5.1); Sodium 132 mmol/L (136-145)
[2021-03-09 05:10] LABS: Band 6 % (5-11); Hemoglobin 13.6 g/dL (14.0-18.0); Lymphocytes 9 % (21-51); MDiff Complete? YES; Mean Corpuscular Hemoglobin 34.1 pg (27.0-31.0); Mean Corpuscular Volume 97.6 fL (78.0-98.0); Mean Platelet Volume 9.6 fL (7.4-10.4); Metamyelocyte 1 % (0-0); Monocytes 4 % (0-10); Neutrophil 80 % (42-75); Platelet Count 214 thou/uL (130-400); Platelet Morphology Comment Appears Adequate; RBC Distribution Width 11.5 % (11.5-14.5); RBC Morphology Normal; Red Blood Cell (RBC) Count 3.98 mill/uL (4.70-6.10); White Blood Cell (WBC) Count 13.7 thou/uL (4.8-10.8)
[2021-03-09 07:12] LABS: Actual Bicarbonate (HCO3a) 28.4 mEq/L (22-28); Base Excess (BEa) 3.7 mEq/L (-2.0 to +3.0); CO2 Tension 42.9 mmHg (35.0-45.0); Calcium, Ionized (arterial) 1.13 mmol/L (1.12-1.30); Carboxyhemoglobin (COHb) 1.1 gm% (0.0-3.0); Hemoglobin (Hb) 14.7 g/dL (14.0-18.0); Potassium - ABG Lab 3.97 mmol/L (3.70-5.30); pH, Arterial 7.44 (7.35-7.45)
[2021-03-09 07:13] LABS: ALV-art Gradient 177.675 mmHg (0-20); O2 Tension (PaO2), arterial 53.9 mmHg (80.0-100.0); Puncture Site RRA
[2021-03-09] MEDS: Enoxaparin Sodium 100 MG/ML SYRINGE SC SCH ×2 (08:15→20:42)
[2021-03-09] MEDS: Zinc Sulfate 220 MG CAP PO SCH (08:15)
[2021-03-09] MEDS: Polyethylene Glycol 3350 17 GM Packet PO SCH (08:15)
[2021-03-09] MEDS: guaiFENesin 200 MG TAB PO SCH ×2 (08:15→20:42)
[2021-03-09] MEDS: Colchicine 0.6 MG TAB PO SCH (08:15)
[2021-03-09] MEDS: Ascorbic Acid 500 mg Chewable Tablet PO SCH (08:15)
[2021-03-09] MEDS: Senokot S 8.6-50 MG TAB PO SCH ×2 (08:16→20:43)
[2021-03-09] MEDS: cloNIDine 0.1 MG TAB PO SCH ×2 (08:16→20:42)
[2021-03-09] MEDS: Cholecalciferol 1,000 UNITS (25 MCG) TAB PO SCH (08:16)
[2021-03-09] MEDS: Pantoprazole 40 MG GRANULES PACKET PER TUBE SCH ×2 (08:16→20:43)
[2021-03-09] MEDS ORDERED: Rocuronium Bromide 50 MG/5 ML VIAL ONE (08:54)
[2021-03-09] MEDS ORDERED: Rocuronium Bromide 10 MG/ML (10ML VIAL) ONE (08:54)
[2021-03-09] MEDS: Lorazepam 2 MG/ML VIAL SLOW IVP PRN ×5 (08:58→16:30)
[2021-03-09] MEDS: methylPREDNISolone Sod Succ/PF 125 MG in Sodium Chloride 0.9% 250 ML 250 ML IVPB SCH (08:59)
[2021-03-09] MEDS: Vecuronium 10 MG VIAL IV PRN ×2 (09:13→14:11)
[2021-03-09] MEDS ORDERED: Cisatracurium Besylate 20 MG/10 ML VIAL IV PRN (11:11)
[2021-03-09] MEDS ORDERED: Midazolam HCl 5 mg/5 ml Vial SLOW IVP SCH ×2 (14:00)
[2021-03-09] MEDS: Lorazepam 20 MG/10ML 100 MG in Sodium Chloride 0.9% 50 ML IVPB SCH (17:38)
[2021-03-09] MEDS: Sodium Chloride 0.45% 1,000 ML IV SCH (23:34)
[2021-03-10] MEDS: Metoclopramide HCl 10 MG/2 ML VIAL IVP SCH ×3 (00:42→16:40)
[2021-03-10] MEDS ORDERED: Sterile Water 10 ML ONE (01:57)
[2021-03-10] MEDS: Vecuronium 10 MG VIAL IV PRN ×2 (01:59→08:28)
[2021-03-10 02:40] LABS: Actual Bicarbonate (HCO3a) 29.5 mEq/L (22-28); Base Excess (BEa) 2.3 mEq/L (-2.0 to +3.0); CO2 Tension 56.5 mmHg (35.0-45.0); Calcium, Ionized (arterial) 1.15 mmol/L (1.12-1.30); Carboxyhemoglobin (COHb) 1.2 gm% (0.0-3.0); Hemoglobin (Hb) 14.9 g/dL (14.0-18.0); O2 Tension (PaO2), arterial 60.4 mmHg (80.0-100.0); Potassium - ABG Lab 3.88 mmol/L (3.70-5.30); pH, Arterial 7.34 (7.35-7.45)
[2021-03-10 02:45] LABS: ALV-art Gradient 225.475 mmHg (0-20); Puncture Site LBA
[2021-03-10] MEDS: Propofol 1,000 MG/100 ML VIAL IV PRN ×6 (02:45→22:54)
[2021-03-10 04:26] LABS: Anion Gap 5 mmol/L (10-20); BUN (Urea Nitrogen) 22 mg/dL (8.9-20.6); Calc. Creatinine Clearance 204 mL/min (70-130); Calcium 7.4 mg/dL (7.8-10.44); Carbon Dioxide 31 mmol/L (22-29); Chloride 103 mmol/L (98-107); Glucose 145 mg/dL (70-105); Potassium 4.1 mmol/L (3.5-5.1); Sodium 135 mmol/L (136-145)
[2021-03-10] MEDS: Oxacillin 2 GM in Sodium Chloride 0.9% 100 ML IVPB SCH ×5 (04:37→19:47)
[2021-03-10] MEDS: Lorazepam 2 MG/ML VIAL SLOW IVP PRN (04:44)
[2021-03-10 04:49] LABS: Hemoglobin 13.7 g/dL (14.0-18.0); Mean Corpuscular HGB CONC 33.1 g/dL (32.0-36.0); Mean Corpuscular Hemoglobin 32.4 pg (27.0-31.0); Mean Corpuscular Volume 97.9 fL (78.0-98.0); Mean Platelet Volume 9.3 fL (7.4-10.4); Platelet Count 215 thou/uL (130-400); RBC Distribution Width 11.7 % (11.5-14.5); Red Blood Cell (RBC) Count 4.23 mill/uL (4.70-6.10); White Blood Cell (WBC) Count 13.7 thou/uL (4.8-10.8)
[2021-03-10 05:30] LABS: Band 23 % (5-11); Lymphocytes 4 % (21-51); MDiff Complete? YES; Monocytes 1 % (0-10); Neutrophil 72 % (42-75)
[2021-03-10] MEDS: Dexmedetomidine 1,000 MCG in Sodium Chloride 0.9% 250 ML 240 ML IVPB SCH ×3 (05:59→20:29)
[2021-03-10] MEDS: Colchicine 0.6 MG TAB PO SCH (08:17)
[2021-03-10] MEDS: Acetaminophen 650 MG/20.3 ML UDCUP PO PRN ×2 (08:17→20:37)
[2021-03-10] MEDS: Polyethylene Glycol 3350 17 GM Packet PO SCH (08:18)
[2021-03-10] MEDS: Enoxaparin Sodium 100 MG/ML SYRINGE SC SCH ×2 (08:18→20:27)
[2021-03-10] MEDS: Ascorbic Acid 500 mg Chewable Tablet PO SCH (08:18)
[2021-03-10] MEDS: cloNIDine 0.1 MG TAB PO SCH ×2 (08:18→20:28)
[2021-03-10] MEDS: guaiFENesin 200 MG TAB PO SCH ×2 (08:18→20:27)
[2021-03-10] MEDS: Pantoprazole 40 MG GRANULES PACKET PER TUBE SCH ×2 (08:18→20:28)
[2021-03-10] MEDS: Senokot S 8.6-50 MG TAB PO SCH ×2 (08:18→20:28)
[2021-03-10] MEDS: Cholecalciferol 1,000 UNITS (25 MCG) TAB PO SCH (08:18)
[2021-03-10] MEDS: Zinc Sulfate 220 MG CAP PO SCH (08:19)
[2021-03-10] MEDS: Lorazepam 20 MG/10ML 100 MG in Sodium Chloride 0.9% 50 ML IVPB SCH (09:09)
[2021-03-10] MEDS: Vecuronium Bromide 50 MG in Sodium Chloride 0.9% 250 ML 250 ML IV SCH ×2 (09:33→13:08)
[2021-03-10] MEDS: methylPREDNISolone Sod Succ/PF 125 MG in Sodium Chloride 0.9% 250 ML 250 ML IVPB SCH (09:33)
[2021-03-10] MEDS: Sodium Chloride 0.45% 1,000 ML IV SCH (23:45)
[2021-03-11] MEDS: Oxacillin 2 GM in Sodium Chloride 0.9% 100 ML IVPB SCH ×2 (00:20→03:40)
[2021-03-11] MEDS: Metoclopramide HCl 10 MG/2 ML VIAL IVP SCH ×3 (00:25→16:09)
[2021-03-11] MEDS: Lorazepam 20 MG/10ML 100 MG in Sodium Chloride 0.9% 50 ML IVPB SCH ×2 (01:59→17:39)
[2021-03-11] MEDS: Propofol 1,000 MG/100 ML VIAL IV PRN ×5 (02:27→22:03)
[2021-03-11] MEDS: Dexmedetomidine 1,000 MCG in Sodium Chloride 0.9% 250 ML 240 ML IVPB SCH (03:39)
[2021-03-11 04:35] LABS: Hemoglobin 12.5 g/dL (14.0-18.0); Mean Corpuscular HGB CONC 34.4 g/dL (32.0-36.0); Mean Corpuscular Hemoglobin 33.9 pg (27.0-31.0); Mean Corpuscular Volume 98.4 fL (78.0-98.0); Mean Platelet Volume 9.1 fL (7.4-10.4); Platelet Count 203 thou/uL (130-400); RBC Distribution Width 11.4 % (11.5-14.5); Red Blood Cell (RBC) Count 3.68 mill/uL (4.70-6.10); White Blood Cell (WBC) Count 17.7 thou/uL (4.8-10.8)
[2021-03-11 04:40] LABS: Anion Gap 10 mmol/L (10-20); BUN (Urea Nitrogen) 20 mg/dL (8.9-20.6); Calc. Creatinine Clearance 233 mL/min (70-130); Calcium 6.6 mg/dL (7.8-10.44); Carbon Dioxide 26 mmol/L (22-29); Chloride 103 mmol/L (98-107); Glucose 139 mg/dL (70-105); Potassium 3.8 mmol/L (3.5-5.1); Sodium 135 mmol/L (136-145)
[2021-03-11 05:03] LABS: Band 38 % (5-11); Lymphocytes 5 % (21-51); MDiff Complete? YES; Metamyelocyte 21 % (0-0); Monocytes 2 % (0-10); Neutrophil 34 % (42-75); Platelet Morphology Comment Appears Adequate; Polychromasia SLIGHT = 2-3 cells (100X) (0-2/hpf)
[2021-03-11] MEDS: Vecuronium Bromide 50 MG in Sodium Chloride 0.9% 250 ML 250 ML IV SCH ×4 (05:45→20:42)
[2021-03-11] MEDS ORDERED: Sterile Water 10 ML ONE (06:19)
[2021-03-11] MEDS: Vecuronium 10 MG VIAL IV PRN (06:24)
[2021-03-11] MEDS ORDERED: Fentanyl CADD 100 ML ONE (06:26)
[2021-03-11] MEDS: Fentanyl CADD 100 ML IV SCH (06:28)
[2021-03-11] MEDS ORDERED: MEROPENEM 1 GM/50 ML 1 GM in Premix Bag 1 BAG IVPB SCH (08:00)
[2021-03-11] MEDS: Colchicine 0.6 MG TAB PO SCH (08:24)
[2021-03-11] MEDS: Enoxaparin Sodium 100 MG/ML SYRINGE SC SCH ×2 (08:24→20:25)
[2021-03-11] MEDS: Acetaminophen 650 MG/20.3 ML UDCUP PO PRN (08:24)
[2021-03-11] MEDS: Polyethylene Glycol 3350 17 GM Packet PO SCH (08:24)
[2021-03-11] MEDS: Zinc Sulfate 220 MG CAP PO SCH (08:25)
[2021-03-11] MEDS: Ascorbic Acid 500 mg Chewable Tablet PO SCH (08:25)
[2021-03-11] MEDS: Cholecalciferol 1,000 UNITS (25 MCG) TAB PO SCH (08:25)
[2021-03-11] MEDS: Senokot S 8.6-50 MG TAB PO SCH ×2 (08:25→20:26)
[2021-03-11] MEDS: guaiFENesin 200 MG TAB PO SCH ×2 (08:25→20:26)
[2021-03-11] MEDS: cloNIDine 0.1 MG TAB PO SCH ×2 (08:25→20:25)
[2021-03-11] MEDS: Pantoprazole 40 MG GRANULES PACKET PER TUBE SCH ×2 (08:25→20:26)
[2021-03-11] MEDS ORDERED: VANCOMYCIN 1.75 GM/350 ML BAG 1.75 GM in Premix Bag 1 BAG IVPB SCH (09:00)
[2021-03-11] MEDS: methylPREDNISolone Sod Succ/PF 125 MG in Sodium Chloride 0.9% 250 ML 250 ML IVPB SCH (09:38)
[2021-03-11] MEDS ORDERED: Meropenem 1 GM in Sodium Chloride 0.9% 100 ML IVPB SCH (14:00)
[2021-03-11] MEDS: MEROPENEM 1 GM/50 ML 1 GM in Premix Bag 1 BAG IVPB SCH (15:23)
[2021-03-11] MEDS: VANCOMYCIN 2 GRAM/400 ML BAG 2 GM in Premix Bag 1 BAG IVPB SCH (16:09)
[2021-03-11] MEDS ORDERED: diphenhydrAMINE 50 MG/ML VIAL ONE (16:59)
[2021-03-11] MEDS: Sodium Chloride 0.45% 1,000 ML IV SCH (20:27)
[2021-03-12] MEDS: MEROPENEM 1 GM/50 ML 1 GM in Premix Bag 1 BAG IVPB SCH ×3 (00:09→18:10)
[2021-03-12] MEDS: Metoclopramide HCl 10 MG/2 ML VIAL IVP SCH ×4 (00:09→23:59)
[2021-03-12] MEDS: Vecuronium Bromide 50 MG in Sodium Chloride 0.9% 250 ML 250 ML IV SCH ×6 (01:06→23:43)
[2021-03-12] MEDS: Propofol 1,000 MG/100 ML VIAL IV PRN ×8 (01:07→23:59)
[2021-03-12] MEDS ORDERED: Fentanyl CADD 100 ML ONE ×2 (01:48→21:32)
[2021-03-12] MEDS: Fentanyl CADD 100 ML IV SCH ×2 (01:49→21:41)
[2021-03-12] MEDS: Acetaminophen 650 MG/20.3 ML UDCUP PO PRN (02:46)
[2021-03-12 04:39] LABS: Hemoglobin 12.6 g/dL (14.0-18.0); Mean Corpuscular HGB CONC 33.8 g/dL (32.0-36.0); Mean Corpuscular Volume 97.6 fL (78.0-98.0); Mean Platelet Volume 8.9 fL (7.4-10.4); Platelet Count 261 thou/uL (130-400); RBC Distribution Width 11.6 % (11.5-14.5); Red Blood Cell (RBC) Count 3.81 mill/uL (4.70-6.10); White Blood Cell (WBC) Count 19.2 thou/uL (4.8-10.8)
[2021-03-12 04:54] LABS: ALT (SGPT) 26 U/L (8-55); AST (SGOT) 13 U/L (5-34); Albumin 2.3 g/dL (3.5-5.0); Alkaline Phosphatase 67 U/L (40-110); Anion Gap 9 mmol/L (10-20); BUN (Urea Nitrogen) 23 mg/dL (8.9-20.6); Bilirubin, Total 0.6 mg/dL (0.2-1.2); Calc. Creatinine Clearance 238 mL/min (70-130); Calcium 7.7 mg/dL (7.8-10.44); Carbon Dioxide 29 mmol/L (22-29); Chloride 103 mmol/L (98-107); Globulin 2.2 g/dL (2.4-3.5); Glucose 161 mg/dL (70-105); Magnesium 2.1 mg/dL (1.6-2.6); Potassium 3.7 mmol/L (3.5-5.1); Protein, Total 4.5 g/dL (6.0-8.3); Sodium 137 mmol/L (136-145)
[2021-03-12 05:53] LABS: Band 29 % (5-11); Lymphocytes 5 % (21-51); MDiff Complete? YES; Monocytes 1 % (0-10); Neutrophil 65 % (42-75)
[2021-03-12] MEDS: VANCOMYCIN 2 GRAM/400 ML BAG 2 GM in Premix Bag 1 BAG IVPB SCH ×2 (06:54→08:41)
[2021-03-12 08:15] LABS: Actual Bicarbonate (HCO3a) 29.1 mEq/L (22-28); Base Excess (BEa) 4.3 mEq/L (-2.0 to +3.0); Calcium, Ionized (arterial) 1.14 mmol/L (1.12-1.30); Carboxyhemoglobin (COHb) 0.6 gm% (0.0-3.0); Hemoglobin (Hb) 12.1 g/dL (14.0-18.0); O2 Tension (PaO2), arterial 75.9 mmHg (80.0-100.0); Potassium - ABG Lab 3.59 mmol/L (3.70-5.30); pH, Arterial 7.44 (7.35-7.45)
[2021-03-12 08:19] LABS: Puncture Site LRA
[2021-03-12] MEDS: Ascorbic Acid 500 mg Chewable Tablet PO SCH (08:33)
[2021-03-12] MEDS: guaiFENesin 200 MG TAB PO SCH ×2 (08:33→21:09)
[2021-03-12] MEDS: Senokot S 8.6-50 MG TAB PO SCH ×2 (08:33→21:09)
[2021-03-12] MEDS: Polyethylene Glycol 3350 17 GM Packet PO SCH (08:33)
[2021-03-12] MEDS: Enoxaparin Sodium 100 MG/ML SYRINGE SC SCH ×2 (08:33→21:09)
[2021-03-12] MEDS: cloNIDine 0.1 MG TAB PO SCH ×2 (08:34→21:09)
[2021-03-12] MEDS: Cholecalciferol 1,000 UNITS (25 MCG) TAB PO SCH (08:34)
[2021-03-12] MEDS: Pantoprazole 40 MG GRANULES PACKET PER TUBE SCH ×2 (08:34→21:09)
[2021-03-12] MEDS: Zinc Sulfate 220 MG CAP PO SCH (08:34)
[2021-03-12] MEDS: Lorazepam 20 MG/10ML 100 MG in Sodium Chloride 0.9% 50 ML IVPB SCH (08:44)
[2021-03-12] MEDS: Colchicine 0.6 MG TAB PO SCH (08:44)
[2021-03-12] MEDS: methylPREDNISolone Sod Succ/PF 125 MG in Sodium Chloride 0.9% 250 ML 250 ML IVPB SCH (10:27)
[2021-03-12] MEDS ORDERED: Penicillin G Potassium 5 MILL.UNITS in Sodium Chloride 0.9% 100 ML IVPB SCH (14:00)
[2021-03-12] MEDS ORDERED: Clindamycin/D5W 900 MG in Premix Bag 1 BAG IVPB SCH (14:00)
[2021-03-12 21:46] LABS: Vancomycin, Trough 3.7 ug/mL
[2021-03-12] MEDS ORDERED: Meropenem 1 GM in Sodium Chloride 0.9% 100 ML IVPB SCH (22:00)
[2021-03-12] MEDS: Sodium Chloride 0.45% 1,000 ML IV SCH (23:54)
[2021-03-13] MEDS: MEROPENEM 1 GM/50 ML 1 GM in Premix Bag 1 BAG IVPB SCH ×3 (00:01→17:08)
[2021-03-13] MEDS: Lorazepam 20 MG/10ML 100 MG in Sodium Chloride 0.9% 50 ML IVPB SCH ×2 (03:12→17:59)
[2021-03-13] MEDS: Propofol 1,000 MG/100 ML VIAL IV PRN ×7 (04:21→21:40)
[2021-03-13 04:46] LABS: Hemoglobin 10.9 g/dL (14.0-18.0); Mean Corpuscular Hemoglobin 32.2 pg (27.0-31.0); Mean Corpuscular Volume 97.6 fL (78.0-98.0); Mean Platelet Volume 8.8 fL (7.4-10.4); Platelet Count 247 thou/uL (130-400); RBC Distribution Width 12.1 % (11.5-14.5); Red Blood Cell (RBC) Count 3.39 mill/uL (4.70-6.10); White Blood Cell (WBC) Count 16.8 thou/uL (4.8-10.8)
[2021-03-13] MEDS: Vecuronium Bromide 50 MG in Sodium Chloride 0.9% 250 ML 250 ML IV SCH ×4 (04:50→17:59)
[2021-03-13 04:58] LABS: ALT (SGPT) 34 U/L (8-55); AST (SGOT) 17 U/L (5-34); Albumin 2.3 g/dL (3.5-5.0); Alkaline Phosphatase 62 U/L (40-110); Anion Gap 8 mmol/L (10-20); BUN (Urea Nitrogen) 23 mg/dL (8.9-20.6); Bilirubin, Total 0.6 mg/dL (0.2-1.2); Calc. Creatinine Clearance 275 mL/min (70-130); Calcium 7.6 mg/dL (7.8-10.44); Carbon Dioxide 30 mmol/L (22-29); Chloride 105 mmol/L (98-107); Glucose 159 mg/dL (70-105); Magnesium 2.2 mg/dL (1.6-2.6); Potassium 3.8 mmol/L (3.5-5.1); Protein, Total 4.3 g/dL (6.0-8.3); Sodium 139 mmol/L (136-145)
[2021-03-13 05:15] LABS: Phosphorus 1.9 mg/dL (2.3-4.7)
[2021-03-13 05:35] LABS: Band 24 % (5-11); MDiff Complete? YES; Metamyelocyte 1 % (0-0); Myelocyte 1 % (0-0); Neutrophil 74 % (42-75)
[2021-03-13 07:26] LABS: Actual Bicarbonate (HCO3a) 29.3 mEq/L (22-28); Base Excess (BEa) 4.4 mEq/L (-2.0 to +3.0); CO2 Tension 45.1 mmHg (35.0-45.0); Calcium, Ionized (arterial) 1.15 mmol/L (1.12-1.30); Hemoglobin (Hb) 13.2 g/dL (14.0-18.0); O2 Tension (PaO2), arterial 75.7 mmHg (80.0-100.0); Potassium - ABG Lab 3.65 mmol/L (3.70-5.30); pH, Arterial 7.43 (7.35-7.45)
[2021-03-13 07:58] LABS: ALV-art Gradient 188.775 mmHg (0-20); Puncture Site RRA
[2021-03-13] MEDS: Enoxaparin Sodium 100 MG/ML SYRINGE SC SCH ×2 (08:15→21:42)
[2021-03-13] MEDS: Colchicine 0.6 MG TAB PO SCH (08:15)
[2021-03-13] MEDS: guaiFENesin 200 MG TAB PO SCH ×2 (08:15→21:42)
[2021-03-13] MEDS: Metoclopramide HCl 10 MG/2 ML VIAL IVP SCH ×2 (08:15→15:04)
[2021-03-13] MEDS: Senokot S 8.6-50 MG TAB PO SCH ×2 (08:15→21:42)
[2021-03-13] MEDS: Ascorbic Acid 500 mg Chewable Tablet PO SCH (08:15)
[2021-03-13] MEDS: Polyethylene Glycol 3350 17 GM Packet PO SCH (08:15)
[2021-03-13] MEDS: Zinc Sulfate 220 MG CAP PO SCH (08:16)
[2021-03-13] MEDS: Pantoprazole 40 MG GRANULES PACKET PER TUBE SCH ×2 (08:16→21:42)
[2021-03-13] MEDS: cloNIDine 0.1 MG TAB PO SCH ×2 (08:16→21:42)
[2021-03-13] MEDS: Cholecalciferol 1,000 UNITS (25 MCG) TAB PO SCH (08:16)
[2021-03-13] MEDS: methylPREDNISolone Sod Succ/PF 125 MG in Sodium Chloride 0.9% 250 ML 250 ML IVPB SCH (09:58)
[2021-03-13] MEDS: Albumin 25% 25 GM/100 ML BOT IVPB SCH ×2 (12:00→17:08)
[2021-03-13] MEDS ORDERED: Furosemide 40 MG/4 ML VIAL SLOW IVP SCH (13:00)
[2021-03-13] MEDS ORDERED: Fentanyl CADD 100 ML ONE (15:37)
[2021-03-13 16:30] LABS: Actual Bicarbonate (HCO3a) 32.8 mEq/L (22-28); Base Excess (BEa) 3.3 mEq/L (-2.0 to +3.0); CO2 Tension 78.3 mmHg (35.0-45.0); O2 Tension (PaO2), arterial 79.1 mmHg (80.0-100.0); pH, Arterial 7.24 (7.35-7.45)
[2021-03-13 16:31] LABS: Carboxyhemoglobin (COHb) 0.3 gm% (0.0-3.0); Hemoglobin (Hb) 12.1 g/dL (14.0-18.0)
[2021-03-13 16:32] LABS: ALV-art Gradient 143.875 mmHg (0-20); Calcium, Ionized (arterial) 1.19 mmol/L (1.12-1.30); Potassium - ABG Lab 3.89 mmol/L (3.70-5.30); Puncture Site RRA
[2021-03-13] MEDS: Fentanyl CADD 100 ML IV SCH (16:56)
[2021-03-13 18:10] LABS: CMV DNA-PCR Test Negative (Negative)
[2021-03-13] MEDS: Sodium Chloride 0.45% 1,000 ML IV SCH (23:42)
[2021-03-14] MEDS ORDERED: Fentanyl CADD 100 ML ONE ×3 (00:14→20:21)
[2021-03-14] MEDS: Metoclopramide HCl 10 MG/2 ML VIAL IVP SCH ×3 (00:18→16:09)
[2021-03-14] MEDS: Albumin 25% 25 GM/100 ML BOT IVPB SCH ×3 (00:18→11:44)
[2021-03-14] MEDS: Fentanyl CADD 100 ML IV SCH ×3 (00:18→20:27)
[2021-03-14] MEDS: Propofol 1,000 MG/100 ML VIAL IV PRN ×9 (00:31→22:17)
[2021-03-14] MEDS: Vecuronium Bromide 50 MG in Sodium Chloride 0.9% 250 ML 250 ML IV SCH ×4 (01:30→18:47)
[2021-03-14] MEDS: MEROPENEM 1 GM/50 ML 1 GM in Premix Bag 1 BAG IVPB SCH ×3 (01:49→16:09)
[2021-03-14 05:19] LABS: Hemoglobin 9.4 g/dL (14.0-18.0); Mean Corpuscular Hemoglobin 33.7 pg (27.0-31.0); Mean Corpuscular Volume 99.3 fL (78.0-98.0); Mean Platelet Volume 8.4 fL (7.4-10.4); Platelet Count 212 thou/uL (130-400); RBC Distribution Width 12.7 % (11.5-14.5); Red Blood Cell (RBC) Count 2.78 mill/uL (4.70-6.10)
[2021-03-14 05:34] LABS: Anion Gap 5 mmol/L (10-20); BUN (Urea Nitrogen) 18 mg/dL (8.9-20.6); Calc. Creatinine Clearance 295 mL/min (70-130); Calcium 7.9 mg/dL (7.8-10.44); Carbon Dioxide 34 mmol/L (22-29); Chloride 105 mmol/L (98-107); Glucose 139 mg/dL (70-105); Potassium 3.8 mmol/L (3.5-5.1); Sodium 140 mmol/L (136-145)
[2021-03-14] MEDS: Lorazepam 20 MG/10ML 100 MG in Sodium Chloride 0.9% 50 ML IVPB SCH ×2 (06:29→18:47)
[2021-03-14 06:52] LABS: Band 31 % (5-11); Lymphocytes 4 % (21-51); MDiff Complete? YES; Neutrophil 65 % (42-75)
[2021-03-14 07:14] LABS: Actual Bicarbonate (HCO3a) 31.5 mEq/L (22-28); Base Excess (BEa) 4.9 mEq/L (-2.0 to +3.0); CO2 Tension 58.3 mmHg (35.0-45.0); Calcium, Ionized (arterial) 1.17 mmol/L (1.12-1.30); Carboxyhemoglobin (COHb) 0.7 gm% (0.0-3.0); Hemoglobin (Hb) 9.6 g/dL (14.0-18.0); Potassium - ABG Lab 3.82 mmol/L (3.70-5.30); pH, Arterial 7.35 (7.35-7.45)
[2021-03-14 07:34] LABS: Puncture Site LRA
[2021-03-14 07:35] LABS: ALV-art Gradient 193.975 mmHg (0-20)
[2021-03-14] MEDS: guaiFENesin 200 MG TAB PO SCH ×2 (08:34→20:30)
[2021-03-14] MEDS: Enoxaparin Sodium 100 MG/ML SYRINGE SC SCH ×2 (08:34→20:28)
[2021-03-14] MEDS: Colchicine 0.6 MG TAB PO SCH (08:34)
[2021-03-14] MEDS: Polyethylene Glycol 3350 17 GM Packet PO SCH (08:34)
[2021-03-14] MEDS: Senokot S 8.6-50 MG TAB PO SCH ×2 (08:34→21:15)
[2021-03-14] MEDS: Ascorbic Acid 500 mg Chewable Tablet PO SCH (08:35)
[2021-03-14] MEDS: Pantoprazole 40 MG GRANULES PACKET PER TUBE SCH ×2 (08:35→20:30)
[2021-03-14] MEDS: Cholecalciferol 1,000 UNITS (25 MCG) TAB PO SCH (08:35)
[2021-03-14] MEDS: cloNIDine 0.1 MG TAB PO SCH ×2 (08:35→20:46)
[2021-03-14] MEDS: Zinc Sulfate 220 MG CAP PO SCH (08:35)
[2021-03-14] MEDS: methylPREDNISolone Sod Succ/PF 125 MG/2 ML VIAL IVP SCH (10:57)
[2021-03-14] MEDS: Sodium Chloride 0.45% 1,000 ML IV SCH (17:59)
[2021-03-15] MEDS: Vecuronium Bromide 50 MG in Sodium Chloride 0.9% 250 ML 250 ML IV SCH ×6 (00:28→23:48)
[2021-03-15] MEDS: Metoclopramide HCl 10 MG/2 ML VIAL IVP SCH ×3 (00:58→16:33)
[2021-03-15] MEDS: Propofol 1,000 MG/100 ML VIAL IV PRN ×5 (01:26→16:31)
[2021-03-15] MEDS: MEROPENEM 1 GM/50 ML 1 GM in Premix Bag 1 BAG IVPB SCH ×3 (01:52→16:31)
[2021-03-15] MEDS: cloNIDine 0.1 MG TAB PO PRN (03:59)
[2021-03-15 04:15] LABS: Band 12 % (5-11); Hemoglobin 10.7 g/dL (14.0-18.0); Lymphocytes 14 % (21-51); MDiff Complete? YES; Mean Corpuscular HGB CONC 33.9 g/dL (32.0-36.0); Mean Corpuscular Hemoglobin 33.9 pg (27.0-31.0); Mean Platelet Volume 8.1 fL (7.4-10.4); Metamyelocyte 1 % (0-0); Monocytes 3 % (0-10); Neutrophil 70 % (42-75); Platelet Count 286 thou/uL (130-400); RBC Distribution Width 13.5 % (11.5-14.5); Red Blood Cell (RBC) Count 3.17 mill/uL (4.70-6.10); White Blood Cell (WBC) Count 24.7 thou/uL (4.8-10.8)
[2021-03-15 04:19] LABS: Anion Gap 9 mmol/L (10-20); BUN (Urea Nitrogen) 16 mg/dL (8.9-20.6); Calc. Creatinine Clearance 284 mL/min (70-130); Calcium 8.1 mg/dL (7.8-10.44); Carbon Dioxide 33 mmol/L (22-29); Chloride 105 mmol/L (98-107); Glucose 117 mg/dL (70-105); Potassium 3.5 mmol/L (3.5-5.1); Sodium 143 mmol/L (136-145)
[2021-03-15] MEDS ORDERED: Fentanyl CADD 100 ML ONE ×2 (06:13→15:29)
[2021-03-15] MEDS: Labetalol HCl 100 MG/20 ML VIAL SLOW IVP PRN (06:15)
[2021-03-15] MEDS: Fentanyl CADD 100 ML IV SCH ×2 (06:15→15:40)
[2021-03-15] MEDS: Lorazepam 20 MG/10ML 100 MG in Sodium Chloride 0.9% 50 ML IVPB SCH ×2 (07:12→19:19)
[2021-03-15 07:22] LABS: Actual Bicarbonate (HCO3a) 33.6 mEq/L (22-28); Calcium, Ionized (arterial) 1.19 mmol/L (1.12-1.30); Carboxyhemoglobin (COHb) 1.1 gm% (0.0-3.0); Hemoglobin (Hb) 11.3 g/dL (14.0-18.0); Potassium - ABG Lab 3.39 mmol/L (3.70-5.30)
[2021-03-15 07:23] LABS: CO2 Tension 82.7 mmHg (35.0-45.0); O2 Tension (PaO2), arterial 52.3 mmHg (80.0-100.0); pH, Arterial 7.23 (7.35-7.45)
[2021-03-15 07:25] LABS: ALV-art Gradient 200.825 mmHg (0-20); Puncture Site RRA
[2021-03-15] MEDS: methylPREDNISolone Sod Succ/PF 125 MG/2 ML VIAL IVP SCH (08:21)
[2021-03-15] MEDS: cloNIDine 0.1 MG TAB PO SCH ×2 (08:26→20:57)
[2021-03-15] MEDS: Senokot S 8.6-50 MG TAB PO SCH ×2 (08:26→20:58)
[2021-03-15] MEDS: guaiFENesin 200 MG TAB PO SCH ×2 (08:26→20:57)
[2021-03-15] MEDS: Zinc Sulfate 220 MG CAP PO SCH (08:26)
[2021-03-15] MEDS: Colchicine 0.6 MG TAB PO SCH (08:26)
[2021-03-15] MEDS: Polyethylene Glycol 3350 17 GM Packet PO SCH (08:26)
[2021-03-15] MEDS: Pantoprazole 40 MG GRANULES PACKET PER TUBE SCH ×2 (08:27→20:57)
[2021-03-15] MEDS: Ascorbic Acid 500 mg Chewable Tablet PO SCH (08:27)
[2021-03-15] MEDS: Cholecalciferol 1,000 UNITS (25 MCG) TAB PO SCH (08:27)
[2021-03-15] MEDS: Enoxaparin Sodium 100 MG/ML SYRINGE SC SCH (09:42)
[2021-03-15 12:24] LABS: Actual Bicarbonate (HCO3a) 35.4 mEq/L (22-28); Base Excess (BEa) 3.7 mEq/L (-2.0 to +3.0); Calcium, Ionized (arterial) 1.24 mmol/L (1.12-1.30); Carboxyhemoglobin (COHb) 1.1 gm% (0.0-3.0); Hemoglobin (Hb) 11.6 g/dL (14.0-18.0); Potassium - ABG Lab 4.01 mmol/L (3.70-5.30)
[2021-03-15 12:25] LABS: CO2 Tension 104.7 mmHg (35.0-45.0); O2 Tension (PaO2), arterial 56.2 mmHg (80.0-100.0); pH, Arterial 7.15 (7.35-7.45)
[2021-03-15 12:26] LABS: ALV-art Gradient 454.625 mmHg (0-20); Puncture Site RRA
[2021-03-15] MEDS: Enoxaparin Sodium 60 MG/0.6 ML SYRINGE SC SCH (20:57)
[2021-03-15] MEDS: Sodium Chloride 0.45% 1,000 ML IV SCH (23:45)
[2021-03-16] MEDS: Metoclopramide HCl 10 MG/2 ML VIAL IVP SCH ×3 (00:30→16:12)
[2021-03-16] MEDS ORDERED: Fentanyl CADD 100 ML ONE ×3 (01:37→21:04)
[2021-03-16] MEDS: Propofol 1,000 MG/100 ML VIAL IV PRN ×8 (01:40→23:22)
[2021-03-16] MEDS: MEROPENEM 1 GM/50 ML 1 GM in Premix Bag 1 BAG IVPB SCH ×3 (01:41→16:15)
[2021-03-16] MEDS: Fentanyl CADD 100 ML IV SCH ×3 (01:45→21:15)
[2021-03-16 04:53] LABS: Hemoglobin 8.5 g/dL (14.0-18.0); Mean Corpuscular HGB CONC 34.8 g/dL (32.0-36.0); Mean Corpuscular Hemoglobin 34.5 pg (27.0-31.0); Mean Corpuscular Volume 99.2 fL (78.0-98.0); RBC Distribution Width 14.5 % (11.5-14.5); Red Blood Cell (RBC) Count 2.47 mill/uL (4.70-6.10); White Blood Cell (WBC) Count 13.8 thou/uL (4.8-10.8)
[2021-03-16 04:54] LABS: Mean Platelet Volume 8.3 fL (7.4-10.4); Platelet Count 181 thou/uL (130-400)
[2021-03-16 04:55] LABS: Anion Gap 7 mmol/L (10-20); BUN (Urea Nitrogen) 20 mg/dL (8.9-20.6); Calc. Creatinine Clearance 299 mL/min (70-130); Calcium 7.7 mg/dL (7.8-10.44); Carbon Dioxide 33 mmol/L (22-29); Chloride 105 mmol/L (98-107); Glucose 116 mg/dL (70-105); Potassium 3.1 mmol/L (3.5-5.1); Sodium 142 mmol/L (136-145)
[2021-03-16] MEDS: Vecuronium Bromide 50 MG in Sodium Chloride 0.9% 250 ML 250 ML IV SCH (05:25)
[2021-03-16 06:55] LABS: Band 20 % (5-11); Eosinophils 1 % (0-10); Lymphocytes 9 % (21-51); MDiff Complete? YES; Monocytes 1 % (0-10); Neutrophil 69 % (42-75)
[2021-03-16 07:06] LABS: Actual Bicarbonate (HCO3a) 33.7 mEq/L (22-28); Base Excess (BEa) 9.3 mEq/L (-2.0 to +3.0); CO2 Tension 46.1 mmHg (35.0-45.0); Carboxyhemoglobin (COHb) 0.5 gm% (0.0-3.0); Hemoglobin (Hb) 8.6 g/dL (14.0-18.0); pH, Arterial 7.48 (7.35-7.45)
[2021-03-16 07:07] LABS: Calcium, Ionized (arterial) 1.12 mmol/L (1.12-1.30); Potassium - ABG Lab 3.02 mmol/L (3.70-5.30)
[2021-03-16 07:09] LABS: O2 Tension (PaO2), arterial 48.2 mmHg (80.0-100.0)
[2021-03-16 07:10] LABS: Puncture Site RRA
[2021-03-16 07:19] LABS: ALV-art Gradient 250.675 mmHg (0-20)
[2021-03-16] MEDS: guaiFENesin 200 MG TAB PO SCH ×2 (08:01→21:19)
[2021-03-16] MEDS: Polyethylene Glycol 3350 17 GM Packet PO SCH (08:01)
[2021-03-16] MEDS: Enoxaparin Sodium 60 MG/0.6 ML SYRINGE SC SCH ×2 (08:01→21:18)
[2021-03-16] MEDS: cloNIDine 0.1 MG TAB PO SCH ×2 (08:02→21:19)
[2021-03-16] MEDS: Pantoprazole 40 MG GRANULES PACKET PER TUBE SCH ×2 (08:02→21:19)
[2021-03-16] MEDS: Cholecalciferol 1,000 UNITS (25 MCG) TAB PO SCH (08:02)
[2021-03-16] MEDS: methylPREDNISolone Sod Succ/PF 125 MG/2 ML VIAL IVP SCH (08:02)
[2021-03-16] MEDS: Ascorbic Acid 500 mg Chewable Tablet PO SCH (08:02)
[2021-03-16] MEDS: Zinc Sulfate 220 MG CAP PO SCH (08:02)
[2021-03-16] MEDS: Colchicine 0.6 MG TAB PO SCH (08:05)
[2021-03-16] MEDS: Lorazepam 20 MG/10ML 100 MG in Sodium Chloride 0.9% 50 ML IVPB SCH ×2 (08:06→20:01)
[2021-03-16] MEDS ORDERED: DOXYCYCLINE HYCLATE I-PLEURAL SCH (09:30)
[2021-03-16] MEDS ORDERED: SODIUM CHLORIDE I-PLEURAL SCH (09:30)
[2021-03-16] MEDS ORDERED: ADMIXTURE FEE I-PLEURAL SCH (09:30)
[2021-03-16] MEDS: Senokot S 8.6-50 MG TAB PO SCH ×2 (10:58→21:19)
[2021-03-16] MEDS: diphenhydrAMINE 50 MG/ML VIAL IVP PRN (18:10)
[2021-03-16] MEDS ORDERED: Potassium Chloride 20 MEQ in Premix Bag 1 BAG IVPB SCH ×2 (19:45→20:30)
[2021-03-16] MEDS ORDERED: Electrolyte Replacement Protocol FS PRN (20:30)
[2021-03-16] MEDS: Sodium Chloride 0.45% 1,000 ML IV SCH (23:30)
[2021-03-17] MEDS: Metoclopramide HCl 10 MG/2 ML VIAL IVP SCH ×4 (00:59→23:02)
[2021-03-17] MEDS: Propofol 1,000 MG/100 ML VIAL IV PRN ×2 (03:04→06:19)
[2021-03-17 05:12] LABS: Anion Gap 5 mmol/L (10-20); BUN (Urea Nitrogen) 18 mg/dL (8.9-20.6); Calc. Creatinine Clearance 308 mL/min (70-130); Carbon Dioxide 35 mmol/L (22-29); Chloride 104 mmol/L (98-107); Glucose 111 mg/dL (70-105); Potassium 3.2 mmol/L (3.5-5.1); Sodium 141 mmol/L (136-145)
[2021-03-17 05:14] LABS: Hemoglobin 7.5 g/dL (14.0-18.0); Mean Corpuscular HGB CONC 34.9 g/dL (32.0-36.0); Mean Corpuscular Hemoglobin 34.8 pg (27.0-31.0); Mean Corpuscular Volume 99.8 fL (78.0-98.0); Mean Platelet Volume 8.4 fL (7.4-10.4); Platelet Count 165 thou/uL (130-400); RBC Distribution Width 15.1 % (11.5-14.5); Red Blood Cell (RBC) Count 2.15 mill/uL (4.70-6.10); White Blood Cell (WBC) Count 9.3 thou/uL (4.8-10.8)
[2021-03-17 05:15] LABS: Band 3 % (5-11); Eosinophils 1 % (0-10); Hypochromia SLIGHT = 6-15 cells (100X) (0-5/hpf); Lymphocytes 12 % (21-51); MDiff Complete? YES; Monocytes 5 % (0-10); Neutrophil 79 % (42-75); Platelet Morphology Comment Appears Adequate
[2021-03-17] MEDS: Cefepime 2 GM in Sodium Chloride 0.9% 100 ML IVPB SCH ×2 (05:58→17:38)
[2021-03-17] MEDS ORDERED: Potassium Chloride 40 MEQ in Sodium Chloride 0.9% 250 ML 250 ML IVPB SCH (06:30)
[2021-03-17] MEDS ORDERED: Fentanyl CADD 100 ML ONE (07:03)
[2021-03-17] MEDS: Fentanyl CADD 100 ML IV SCH (07:08)
[2021-03-17] MEDS: methylPREDNISolone Sod Succ/PF 125 MG/2 ML VIAL IVP SCH (09:14)
[2021-03-17] MEDS: Lorazepam 20 MG/10ML 100 MG in Sodium Chloride 0.9% 50 ML IVPB SCH (09:16)
[2021-03-17] MEDS: Enoxaparin Sodium 60 MG/0.6 ML SYRINGE SC SCH ×2 (09:18→20:17)
[2021-03-17] MEDS: cloNIDine 0.1 MG TAB PO SCH ×2 (09:19→20:18)
[2021-03-17] MEDS: Ascorbic Acid 500 mg Chewable Tablet PO SCH (09:19)
[2021-03-17] MEDS: guaiFENesin 200 MG TAB PO SCH ×2 (09:20→20:18)
[2021-03-17] MEDS: Pantoprazole 40 MG GRANULES PACKET PER TUBE SCH ×2 (09:20→20:19)
[2021-03-17] MEDS: Colchicine 0.6 MG TAB PO SCH (09:20)
[2021-03-17] MEDS: Cholecalciferol 1,000 UNITS (25 MCG) TAB PO SCH (09:21)
[2021-03-17] MEDS: Senokot S 8.6-50 MG TAB PO SCH ×2 (09:21→20:18)
[2021-03-17] MEDS: Zinc Sulfate 220 MG CAP PO SCH (09:21)
[2021-03-17] MEDS: cloNIDine 0.1 MG TAB PO PRN ×2 (09:34→13:08)
[2021-03-17] MEDS: Polyethylene Glycol 3350 17 GM Packet PO SCH (09:50)
[2021-03-17] MEDS: niCARdipine 50 MG in Sodium Chloride 0.9% 250 ML 230 ML IV SCH ×2 (10:27→17:35)
[2021-03-17] MEDS: Enalaprilat Dihydrate 1.25 MG/ML VIAL SLOW IVP SCH ×3 (11:29→23:03)
[2021-03-17 11:46] LABS: Actual Bicarbonate (HCO3a) 30.7 mEq/L (22-28); Base Excess (BEa) 6.2 mEq/L (-2.0 to +3.0); CO2 Tension 44.8 mmHg (35.0-45.0); Carboxyhemoglobin (COHb) 0.9 gm% (0.0-3.0); Hemoglobin (Hb) 7.6 g/dL (14.0-18.0); pH, Arterial 7.45 (7.35-7.45)
[2021-03-17 11:47] LABS: Potassium - ABG Lab 3.16 mmol/L (3.70-5.30); Puncture Site RRA
[2021-03-17] MEDS: fentaNYL 100 mcg/hour Patch TD SCH (13:20)
[2021-03-17] MEDS: Labetalol HCl 100 MG/20 ML VIAL SLOW IVP PRN (13:47)
[2021-03-17] MEDS: Acetaminophen 650 MG/20.3 ML UDCUP PO PRN ×2 (14:54→20:16)
[2021-03-17] MEDS ORDERED: Metoprolol Tartrate 5 MG/5 ML VIAL IVP PRN ×3 (15:37→15:47)
[2021-03-17] MEDS ORDERED: Metolazone 2.5 MG TAB PO SCH (15:38)
[2021-03-17] MEDS ORDERED: Furosemide 100 MG/10 ML VIAL SLOW IVP SCH (15:45)
[2021-03-17] MEDS ORDERED: Cefepime 2 GM VIAL ONE (17:36)
[2021-03-17] MEDS: Sodium Chloride 0.45% 1,000 ML IV SCH (23:02)
[2021-03-18] MEDS: Cefepime 2 GM in Sodium Chloride 0.9% 100 ML IVPB SCH ×2 (04:01→17:03)
[2021-03-18] MEDS: niCARdipine 50 MG in Sodium Chloride 0.9% 250 ML 230 ML IV SCH ×3 (04:01→23:32)
[2021-03-18 05:03] LABS: Band 19 % (5-11); Hemoglobin 7.5 g/dL (14.0-18.0); Lymphocytes 9 % (21-51); MDiff Complete? YES; Mean Corpuscular HGB CONC 34.2 g/dL (32.0-36.0); Mean Corpuscular Hemoglobin 34.4 pg (27.0-31.0); Mean Platelet Volume 8.6 fL (7.4-10.4); Metamyelocyte 1 % (0-0); Monocytes 3 % (0-10); Neutrophil 68 % (42-75); Platelet Count 171 thou/uL (130-400); Platelet Morphology Comment Appears Adequate; RBC Distribution Width 15.4 % (11.5-14.5); Red Blood Cell (RBC) Count 2.18 mill/uL (4.70-6.10); White Blood Cell (WBC) Count 7.9 thou/uL (4.8-10.8)
[2021-03-18 05:12] LABS: Anion Gap 6 mmol/L (10-20); BUN (Urea Nitrogen) 17 mg/dL (8.9-20.6); Calc. Creatinine Clearance 322 mL/min (70-130); Calcium 8.4 mg/dL (7.8-10.44); Carbon Dioxide 34 mmol/L (22-29); Chloride 103 mmol/L (98-107); Glucose 123 mg/dL (70-105); Potassium 3.8 mmol/L (3.5-5.1); Sodium 139 mmol/L (136-145)
[2021-03-18] MEDS: Enalaprilat Dihydrate 1.25 MG/ML VIAL SLOW IVP SCH ×4 (05:31→23:46)
[2021-03-18 08:08] LABS: Actual Bicarbonate (HCO3a) 32.5 mEq/L (22-28); Base Excess (BEa) 8.7 mEq/L (-2.0 to +3.0); Calcium, Ionized (arterial) 1.14 mmol/L (1.12-1.30); Carboxyhemoglobin (COHb) 1.7 gm% (0.0-3.0); O2 Tension (PaO2), arterial 70.4 mmHg (80.0-100.0); Potassium - ABG Lab 3.57 mmol/L (3.70-5.30); pH, Arterial 7.51 (7.35-7.45)
[2021-03-18 08:23] LABS: Puncture Site LRA
[2021-03-18] MEDS: Metoclopramide HCl 10 MG/2 ML VIAL IVP SCH ×2 (08:57→17:02)
[2021-03-18] MEDS: methylPREDNISolone Sod Succ/PF 125 MG/2 ML VIAL IVP SCH (09:02)
[2021-03-18] MEDS: guaiFENesin 200 MG TAB PO SCH ×2 (09:03→21:16)
[2021-03-18] MEDS: Senokot S 8.6-50 MG TAB PO SCH ×2 (09:05→21:16)
[2021-03-18] MEDS: Cholecalciferol 1,000 UNITS (25 MCG) TAB PO SCH (09:06)
[2021-03-18] MEDS: cloNIDine 0.1 MG TAB PO SCH ×2 (09:06→21:15)
[2021-03-18] MEDS: Pantoprazole 40 MG GRANULES PACKET PER TUBE SCH ×2 (09:07→21:16)
[2021-03-18] MEDS: Zinc Sulfate 220 MG CAP PO SCH (09:08)
[2021-03-18] MEDS: Polyethylene Glycol 3350 17 GM Packet PO SCH (09:08)
[2021-03-18] MEDS: Ascorbic Acid 500 mg Chewable Tablet PO SCH (09:08)
[2021-03-18] MEDS: Enoxaparin Sodium 60 MG/0.6 ML SYRINGE SC SCH ×2 (09:09→21:15)
[2021-03-18] MEDS: Dexmedetomidine 1,000 MCG in Sodium Chloride 0.9% 250 ML 240 ML IVPB SCH ×2 (12:28→23:32)
[2021-03-18] MEDS: Morphine 2 MG/ML VIAL SLOW IVP PRN (23:02)
[2021-03-18] MEDS: Lorazepam 2 MG/ML VIAL SLOW IVP PRN (23:46)
[2021-03-19] MEDS: Sodium Chloride 0.45% 1,000 ML IV SCH ×2 (00:30→23:15)
[2021-03-19] MEDS: Metoclopramide HCl 10 MG/2 ML VIAL IVP SCH ×3 (00:35→13:37)
[2021-03-19 04:57] LABS: Hemoglobin 8.3 g/dL (14.0-18.0); Mean Corpuscular HGB CONC 34.2 g/dL (32.0-36.0); Mean Corpuscular Volume 99.3 fL (78.0-98.0); Mean Platelet Volume 8.2 fL (7.4-10.4); Platelet Count 205 thou/uL (130-400); RBC Distribution Width 15.1 % (11.5-14.5); Red Blood Cell (RBC) Count 2.43 mill/uL (4.70-6.10); White Blood Cell (WBC) Count 6.9 thou/uL (4.8-10.8)
[2021-03-19 04:58] LABS: Band 25 % (5-11); Lymphocytes 13 % (21-51); MDiff Complete? YES; Monocytes 5 % (0-10); Neutrophil 57 % (42-75); Platelet Morphology Comment Appears Adequate
[2021-03-19 05:01] LABS: Anion Gap 8 mmol/L (10-20); BUN (Urea Nitrogen) 17 mg/dL (8.9-20.6); Calc. Creatinine Clearance 328 mL/min (70-130); Calcium 8.2 mg/dL (7.8-10.44); Carbon Dioxide 32 mmol/L (22-29); Chloride 99 mmol/L (98-107); Glucose 110 mg/dL (70-105); Potassium 3.5 mmol/L (3.5-5.1); Sodium 135 mmol/L (136-145)
[2021-03-19] MEDS: Cefepime 2 GM in Sodium Chloride 0.9% 100 ML IVPB SCH ×2 (05:49→16:42)
[2021-03-19] MEDS: Enalaprilat Dihydrate 1.25 MG/ML VIAL SLOW IVP SCH ×3 (05:51→17:03)
[2021-03-19] MEDS ORDERED: Potassium Chloride 40 MEQ in Sodium Chloride 0.9% 250 ML 250 ML IVPB SCH (06:30)
[2021-03-19 06:50] LABS: Actual Bicarbonate (HCO3a) 30.9 mEq/L (22-28); Base Excess (BEa) 8.2 mEq/L (-2.0 to +3.0); CO2 Tension 36.1 mmHg (35.0-45.0); Carboxyhemoglobin (COHb) 0.8 gm% (0.0-3.0); Hemoglobin (Hb) 10.2 g/dL (14.0-18.0); Potassium - ABG Lab 3.36 mmol/L (3.70-5.30)
[2021-03-19 06:51] LABS: O2 Tension (PaO2), arterial 57.9 mmHg (80.0-100.0); pH, Arterial 7.55 (7.35-7.45)
[2021-03-19 06:52] LABS: ALV-art Gradient 182.175 mmHg (0-20); Puncture Site RRA
[2021-03-19] MEDS: methylPREDNISolone Sod Succ/PF 125 MG/2 ML VIAL IVP SCH (08:30)
[2021-03-19] MEDS: Zinc Sulfate 220 MG CAP PO SCH (08:30)
[2021-03-19] MEDS: Pantoprazole 40 MG GRANULES PACKET PER TUBE SCH ×2 (08:30→20:07)
[2021-03-19] MEDS: Polyethylene Glycol 3350 17 GM Packet PO SCH (08:30)
[2021-03-19] MEDS: Senokot S 8.6-50 MG TAB PO SCH ×2 (08:30→20:09)
[2021-03-19] MEDS: Ascorbic Acid 500 mg Chewable Tablet PO SCH (08:30)
[2021-03-19] MEDS: Enoxaparin Sodium 60 MG/0.6 ML SYRINGE SC SCH ×2 (08:30→20:07)
[2021-03-19] MEDS: cloNIDine 0.1 MG TAB PO SCH ×2 (08:30→20:07)
[2021-03-19] MEDS: Cholecalciferol 1,000 UNITS (25 MCG) TAB PO SCH (08:30)
[2021-03-19] MEDS: guaiFENesin 200 MG TAB PO SCH ×2 (08:30→20:08)
[2021-03-19] MEDS: Labetalol HCl 100 MG/20 ML VIAL SLOW IVP PRN (10:50)
[2021-03-19] MEDS: Dexmedetomidine 1,000 MCG in Sodium Chloride 0.9% 250 ML 240 ML IVPB SCH ×2 (11:40→23:28)
[2021-03-19] MEDS: Benzonatate 100 MG CAP PO PRN (18:35)
[2021-03-19] MEDS: Acetaminophen 650 MG/20.3 ML UDCUP PO PRN (18:35)
[2021-03-19] MEDS: niCARdipine 50 MG in Sodium Chloride 0.9% 250 ML 230 ML IV SCH (19:22)
[2021-03-19] MEDS: Lorazepam 2 MG/ML VIAL SLOW IVP PRN ×2 (19:42→23:15)
[2021-03-19] MEDS: Morphine 2 MG/ML VIAL SLOW IVP PRN ×2 (19:42→23:15)
[2021-03-20] MEDS: Metoclopramide HCl 10 MG/2 ML VIAL IVP SCH ×3 (00:19→14:24)
[2021-03-20] MEDS: Enalaprilat Dihydrate 1.25 MG/ML VIAL SLOW IVP SCH ×4 (00:20→17:10)
[2021-03-20] MEDS: Lorazepam 2 MG/ML VIAL SLOW IVP PRN ×4 (01:48→23:15)
[2021-03-20] MEDS: Morphine 2 MG/ML VIAL SLOW IVP PRN ×3 (02:50→23:15)
[2021-03-20] MEDS: Cefepime 2 GM in Sodium Chloride 0.9% 100 ML IVPB SCH ×2 (04:59→16:18)
[2021-03-20 05:48] LABS: Band 12 % (5-11); Hemoglobin 9.7 g/dL (14.0-18.0); Lymphocytes 14 % (21-51); MDiff Complete? YES; Macrocytosis SLIGHT = 6-15 cells (100X) (0-5/hpf); Mean Corpuscular HGB CONC 34.3 g/dL (32.0-36.0); Mean Corpuscular Hemoglobin 33.8 pg (27.0-31.0); Mean Corpuscular Volume 98.5 fL (78.0-98.0); Mean Platelet Volume 8.3 fL (7.4-10.4); Metamyelocyte 1 % (0-0); Monocytes 2 % (0-10); Neutrophil 70 % (42-75); Nucleated RBC 1 % (0); Platelet Count 221 thou/uL (130-400); Platelet Morphology Comment Appears Adequate; Polychromasia SLIGHT = 2-3 cells (100X) (0-2/hpf); Reactive Lymphocytes 1 % (0-10); Red Blood Cell (RBC) Count 2.88 mill/uL (4.70-6.10); White Blood Cell (WBC) Count 9.8 thou/uL (4.8-10.8)
[2021-03-20 05:49] LABS: Anion Gap 9 mmol/L (10-20); BUN (Urea Nitrogen) 13 mg/dL (8.9-20.6); Calc. Creatinine Clearance 333 mL/min (70-130); Calcium 8.5 mg/dL (7.8-10.44); Carbon Dioxide 29 mmol/L (22-29); Chloride 99 mmol/L (98-107); Glucose 101 mg/dL (70-105); Potassium 3.2 mmol/L (3.5-5.1); Sodium 134 mmol/L (136-145)
[2021-03-20] MEDS ORDERED: Potassium Chloride 40 MEQ in Sodium Chloride 0.9% 250 ML 250 ML IVPB SCH (06:30)
[2021-03-20 06:50] LABS: Actual Bicarbonate (HCO3a) 28.3 mEq/L (22-28); Base Excess (BEa) 6.3 mEq/L (-2.0 to +3.0); CO2 Tension 31.2 mmHg (35.0-45.0); Calcium, Ionized (arterial) 1.11 mmol/L (1.12-1.30); Carboxyhemoglobin (COHb) 0.5 gm% (0.0-3.0); Hemoglobin (Hb) 10.5 g/dL (14.0-18.0); O2 Tension (PaO2), arterial 61.3 mmHg (80.0-100.0); Potassium - ABG Lab 3.17 mmol/L (3.70-5.30)
[2021-03-20] MEDS: Dexmedetomidine 1,000 MCG in Sodium Chloride 0.9% 250 ML 240 ML IVPB SCH ×3 (07:00→16:18)
[2021-03-20 07:08] LABS: Puncture Site RRA; pH, Arterial 7.58 (7.35-7.45)
[2021-03-20] MEDS: Labetalol HCl 100 MG/20 ML VIAL SLOW IVP PRN (07:19)
[2021-03-20] MEDS: methylPREDNISolone Sod Succ/PF 125 MG/2 ML VIAL IVP SCH (08:23)
[2021-03-20] MEDS: Enoxaparin Sodium 60 MG/0.6 ML SYRINGE SC SCH ×2 (08:24→20:04)
[2021-03-20] MEDS: Polyethylene Glycol 3350 17 GM Packet PO SCH (08:25)
[2021-03-20] MEDS: guaiFENesin 200 MG TAB PO SCH ×2 (08:25→20:04)
[2021-03-20] MEDS: Senokot S 8.6-50 MG TAB PO SCH ×2 (08:25→20:04)
[2021-03-20] MEDS: Pantoprazole 40 MG GRANULES PACKET PER TUBE SCH ×2 (08:25→20:04)
[2021-03-20] MEDS: Ascorbic Acid 500 mg Chewable Tablet PO SCH (08:26)
[2021-03-20] MEDS: Zinc Sulfate 220 MG CAP PO SCH (08:26)
[2021-03-20] MEDS: cloNIDine 0.1 MG TAB PO SCH ×2 (08:26→20:04)
[2021-03-20] MEDS: Cholecalciferol 1,000 UNITS (25 MCG) TAB PO SCH (08:26)
[2021-03-20] MEDS: fentaNYL 100 mcg/hour Patch TD SCH (13:18)
[2021-03-20] MEDS: niCARdipine 50 MG in Sodium Chloride 0.9% 250 ML 230 ML IV SCH ×2 (13:20→21:54)
[2021-03-20] MEDS: Sodium Chloride 0.45% 1,000 ML IV SCH (23:37)
[2021-03-21] MEDS: Metoclopramide HCl 10 MG/2 ML VIAL IVP SCH ×3 (00:17→16:31)
[2021-03-21] MEDS: Enalaprilat Dihydrate 1.25 MG/ML VIAL SLOW IVP SCH ×4 (00:17→18:13)
[2021-03-21] MEDS: Dexmedetomidine 1,000 MCG in Sodium Chloride 0.9% 250 ML 240 ML IVPB SCH ×3 (00:52→16:34)
[2021-03-21] MEDS: Morphine 2 MG/ML VIAL SLOW IVP PRN ×3 (02:01→21:29)
[2021-03-21] MEDS: Lorazepam 2 MG/ML VIAL SLOW IVP PRN ×2 (02:02→18:38)
[2021-03-21 04:26] LABS: Band 5 % (5-11); Hemoglobin 8.8 g/dL (14.0-18.0); Hypochromia SLIGHT = 6-15 cells (100X) (0-5/hpf); Lymphocytes 19 % (21-51); MDiff Complete? YES; Mean Corpuscular HGB CONC 34.5 g/dL (32.0-36.0); Mean Corpuscular Hemoglobin 34.2 pg (27.0-31.0); Mean Corpuscular Volume 98.9 fL (78.0-98.0); Mean Platelet Volume 8.7 fL (7.4-10.4); Monocytes 6 % (0-10); Neutrophil 70 % (42-75); Platelet Count 194 thou/uL (130-400); Platelet Morphology Comment Appears Adequate; RBC Distribution Width 15.1 % (11.5-14.5); Red Blood Cell (RBC) Count 2.57 mill/uL (4.70-6.10); White Blood Cell (WBC) Count 7.4 thou/uL (4.8-10.8)
[2021-03-21 04:41] LABS: Anion Gap 9 mmol/L (10-20); BUN (Urea Nitrogen) 14 mg/dL (8.9-20.6); Calc. Creatinine Clearance 315 mL/min (70-130); Calcium 8.5 mg/dL (7.8-10.44); Carbon Dioxide 29 mmol/L (22-29); Chloride 103 mmol/L (98-107); Glucose 107 mg/dL (70-105); Potassium 3.4 mmol/L (3.5-5.1); Sodium 138 mmol/L (136-145)
[2021-03-21] MEDS: Cefepime 2 GM in Sodium Chloride 0.9% 100 ML IVPB SCH ×2 (05:21→16:30)
[2021-03-21] MEDS ORDERED: Potassium Chloride 40 MEQ in Sodium Chloride 0.9% 250 ML 250 ML IVPB SCH (05:30)
[2021-03-21 07:01] LABS: Actual Bicarbonate (HCO3a) 26.2 mEq/L (22-28); Base Excess (BEa) 3.6 mEq/L (-2.0 to +3.0); CO2 Tension 32.2 mmHg (35.0-45.0); Calcium, Ionized (arterial) 1.14 mmol/L (1.12-1.30); Carboxyhemoglobin (COHb) 0.6 gm% (0.0-3.0); Hemoglobin (Hb) 10.4 g/dL (14.0-18.0); O2 Tension (PaO2), arterial 83.2 mmHg (80.0-100.0); Potassium - ABG Lab 3.63 mmol/L (3.70-5.30); pH, Arterial 7.53 (7.35-7.45)
[2021-03-21 08:05] LABS: Puncture Site RRA
[2021-03-21] MEDS: Zinc Sulfate 220 MG CAP PO SCH (08:52)
[2021-03-21] MEDS: Ascorbic Acid 500 mg Chewable Tablet PO SCH (08:52)
[2021-03-21] MEDS: Cholecalciferol 1,000 UNITS (25 MCG) TAB PO SCH (08:52)
[2021-03-21] MEDS: Senokot S 8.6-50 MG TAB PO SCH ×2 (08:52→21:30)
[2021-03-21] MEDS: guaiFENesin 200 MG TAB PO SCH ×2 (08:52→21:30)
[2021-03-21] MEDS: Pantoprazole 40 MG GRANULES PACKET PER TUBE SCH ×2 (08:52→21:31)
[2021-03-21] MEDS: Enoxaparin Sodium 60 MG/0.6 ML SYRINGE SC SCH ×2 (08:53→21:30)
[2021-03-21] MEDS: methylPREDNISolone Sod Succ/PF 125 MG/2 ML VIAL IVP SCH (08:53)
[2021-03-21] MEDS: Polyethylene Glycol 3350 17 GM Packet PO SCH (08:53)
[2021-03-21] MEDS: cloNIDine 0.1 MG TAB PO SCH ×2 (08:53→21:30)
[2021-03-21 10:45] LABS: Potassium 3.7 mmol/L (3.5-5.1)
[2021-03-22] MEDS: Morphine 2 MG/ML VIAL SLOW IVP PRN ×5 (00:18→23:34)
[2021-03-22] MEDS: Lorazepam 2 MG/ML VIAL SLOW IVP PRN ×9 (00:18→20:09)
[2021-03-22] MEDS: Metoclopramide HCl 10 MG/2 ML VIAL IVP SCH ×4 (00:22→23:34)
[2021-03-22] MEDS: Enalaprilat Dihydrate 1.25 MG/ML VIAL SLOW IVP SCH ×4 (00:23→23:23)
[2021-03-22] MEDS: Sodium Chloride 0.45% 1,000 ML IV SCH ×2 (00:26→23:24)
[2021-03-22 05:18] LABS: Anion Gap 10 mmol/L (10-20); BUN (Urea Nitrogen) 15 mg/dL (8.9-20.6); Calc. Creatinine Clearance 322 mL/min (70-130); Calcium 8.7 mg/dL (7.8-10.44); Carbon Dioxide 28 mmol/L (22-29); Chloride 101 mmol/L (98-107); Glucose 98 mg/dL (70-105); Potassium 3.3 mmol/L (3.5-5.1); Sodium 136 mmol/L (136-145)
[2021-03-22 05:24] LABS: Band 4 % (5-11); Eosinophils 2 % (0-10); Lymphocytes 18 % (21-51); MDiff Complete? YES; Macrocytosis SLIGHT = 6-15 cells (100X) (0-5/hpf); Mean Corpuscular HGB CONC 34.2 g/dL (32.0-36.0); Mean Corpuscular Hemoglobin 34.1 pg (27.0-31.0); Mean Corpuscular Volume 99.9 fL (78.0-98.0); Mean Platelet Volume 8.5 fL (7.4-10.4); Monocytes 3 % (0-10); Neutrophil 69 % (42-75); Platelet Count 249 thou/uL (130-400); Platelet Morphology Comment Appears Adequate; RBC Distribution Width 15.1 % (11.5-14.5); Reactive Lymphocytes 4 % (0-10); Red Blood Cell (RBC) Count 2.64 mill/uL (4.70-6.10); White Blood Cell (WBC) Count 9.9 thou/uL (4.8-10.8)
[2021-03-22] MEDS: Cefepime 2 GM in Sodium Chloride 0.9% 100 ML IVPB SCH ×2 (06:01→17:21)
[2021-03-22] MEDS ORDERED: Potassium Chloride 40 MEQ in Sodium Chloride 0.9% 250 ML 250 ML IVPB SCH (07:00)
[2021-03-22 08:44] LABS: Base Excess (BEa) 5.2 mEq/L (-2.0 to +3.0); CO2 Tension 39.9 mmHg (35.0-45.0); Calcium, Ionized (arterial) 1.14 mmol/L (1.12-1.30); Carboxyhemoglobin (COHb) 0.8 gm% (0.0-3.0); Hemoglobin (Hb) 11.4 g/dL (14.0-18.0); Potassium - ABG Lab 3.44 mmol/L (3.70-5.30); pH, Arterial 7.48 (7.35-7.45)
[2021-03-22 08:47] LABS: ALV-art Gradient 184.025 mmHg (0-20); O2 Tension (PaO2), arterial 51.3 mmHg (80.0-100.0); Puncture Site RRA
[2021-03-22] MEDS: methylPREDNISolone Sod Succ/PF 125 MG/2 ML VIAL IVP SCH (08:47)
[2021-03-22] MEDS: Enoxaparin Sodium 60 MG/0.6 ML SYRINGE SC SCH (08:47)
[2021-03-22] MEDS: guaiFENesin 200 MG TAB PO SCH ×2 (08:48→20:08)
[2021-03-22] MEDS: Pantoprazole 40 MG GRANULES PACKET PER TUBE SCH ×2 (08:48→20:08)
[2021-03-22] MEDS: Ascorbic Acid 500 mg Chewable Tablet PO SCH (08:48)
[2021-03-22] MEDS: Zinc Sulfate 220 MG CAP PO SCH (08:48)
[2021-03-22] MEDS: Cholecalciferol 1,000 UNITS (25 MCG) TAB PO SCH (08:48)
[2021-03-22] MEDS: cloNIDine 0.1 MG TAB PO SCH ×2 (08:48→20:08)
[2021-03-22] MEDS: Polyethylene Glycol 3350 17 GM Packet PO SCH (08:49)
[2021-03-22] MEDS: Senokot S 8.6-50 MG TAB PO SCH ×2 (08:49→23:24)
[2021-03-22] MEDS: Dexmedetomidine 1,000 MCG in Sodium Chloride 0.9% 250 ML 240 ML IVPB SCH ×2 (13:05→18:12)
[2021-03-22] MEDS ORDERED: methylPREDNISolone Sod Succ 40 MG VIAL IVP SCH (14:08)
[2021-03-22] MEDS: Metoprolol Tartrate 5 MG/5 ML VIAL IVP PRN (14:28)
[2021-03-22] MEDS: diphenhydrAMINE 50 MG/ML VIAL IVP PRN (20:09)
[2021-03-22] MEDS: Ondansetron PF 4 MG/2 ML Vial IVP PRN (23:34)
[2021-03-23] MEDS: diphenhydrAMINE 50 MG/ML VIAL IVP PRN (00:48)
[2021-03-23] MEDS: Lorazepam 2 MG/ML VIAL SLOW IVP PRN ×2 (00:48→04:46)
[2021-03-23] MEDS: Morphine 2 MG/ML VIAL SLOW IVP PRN ×7 (00:50→19:50)
[2021-03-23] MEDS: Enalaprilat Dihydrate 1.25 MG/ML VIAL SLOW IVP SCH ×4 (01:59→19:29)
[2021-03-23] MEDS: Cefepime 2 GM in Sodium Chloride 0.9% 100 ML IVPB SCH ×2 (04:44→17:15)
[2021-03-23] MEDS: Ondansetron PF 4 MG/2 ML Vial IVP PRN (04:46)
[2021-03-23 05:30] LABS: Band 2 % (5-11); Hemoglobin 8.8 g/dL (14.0-18.0); Hypochromia SLIGHT = 6-15 cells (100X) (0-5/hpf); Lymphocytes 24 % (21-51); MDiff Complete? YES; Mean Corpuscular HGB CONC 34.3 g/dL (32.0-36.0); Mean Corpuscular Hemoglobin 34.4 pg (27.0-31.0); Mean Platelet Volume 8.4 fL (7.4-10.4); Monocytes 4 % (0-10); Neutrophil 69 % (42-75); Platelet Count 254 thou/uL (130-400); Platelet Morphology Comment Appears Adequate; RBC Distribution Width 15.1 % (11.5-14.5); Reactive Lymphocytes 1 % (0-10); Red Blood Cell (RBC) Count 2.57 mill/uL (4.70-6.10)
[2021-03-23 05:46] LABS: Anion Gap 7 mmol/L (10-20); BUN (Urea Nitrogen) 13 mg/dL (8.9-20.6); Calc. Creatinine Clearance 310 mL/min (70-130); Calcium 8.6 mg/dL (7.8-10.44); Carbon Dioxide 30 mmol/L (22-29); Chloride 103 mmol/L (98-107); Glucose 115 mg/dL (70-105); Potassium 3.3 mmol/L (3.5-5.1); Sodium 137 mmol/L (136-145)
[2021-03-23] MEDS ORDERED: Potassium Chloride 40 MEQ in Sodium Chloride 0.9% 250 ML 250 ML IVPB SCH (08:00)
[2021-03-23] MEDS: Dexmedetomidine 1,000 MCG in Sodium Chloride 0.9% 250 ML 240 ML IVPB SCH ×2 (08:18→17:39)
[2021-03-23 08:20] LABS: Actual Bicarbonate (HCO3a) 27.1 mEq/L (22-28); Base Excess (BEa) 3.2 mEq/L (-2.0 to +3.0); CO2 Tension 38.5 mmHg (35.0-45.0); Calcium, Ionized (arterial) 1.18 mmol/L (1.12-1.30); Carboxyhemoglobin (COHb) 1.3 gm% (0.0-3.0); Hemoglobin (Hb) 9.6 g/dL (14.0-18.0); O2 Tension (PaO2), arterial 85.4 mmHg (80.0-100.0); Potassium - ABG Lab 3.49 mmol/L (3.70-5.30); pH, Arterial 7.47 (7.35-7.45)
[2021-03-23] MEDS: cloNIDine 0.1 MG TAB PO SCH ×2 (08:20→19:51)
[2021-03-23 08:21] LABS: ALV-art Gradient 151.675 mmHg (0-20); Puncture Site LRA
[2021-03-23] MEDS: methylPREDNISolone Sod Succ 40 MG VIAL IVP SCH (08:21)
[2021-03-23] MEDS: Metoclopramide HCl 10 MG/2 ML VIAL IVP SCH ×2 (08:25→17:15)
[2021-03-23] MEDS: Ascorbic Acid 500 mg Chewable Tablet PO SCH (09:17)
[2021-03-23] MEDS: guaiFENesin 200 MG TAB PO SCH ×2 (09:18→19:51)
[2021-03-23] MEDS: Zinc Sulfate 220 MG CAP PO SCH (09:18)
[2021-03-23] MEDS: Senokot S 8.6-50 MG TAB PO SCH ×2 (09:18→19:51)
[2021-03-23] MEDS: Cholecalciferol 1,000 UNITS (25 MCG) TAB PO SCH (09:18)
[2021-03-23] MEDS: Pantoprazole 40 MG GRANULES PACKET PER TUBE SCH ×2 (09:18→19:51)
[2021-03-23] MEDS: Polyethylene Glycol 3350 17 GM Packet PO SCH (09:18)
[2021-03-23] MEDS ORDERED: Fentanyl 100 MCG/2 ML VIAL ONE (12:03)
[2021-03-23] MEDS ORDERED: Lidocaine 1% w/Epinephrine 1:100K 30 ML VIAL ONE (12:06)
[2021-03-23] MEDS ORDERED: Bupivacaine 0.25% HCL 30 ML VIAL ONE (12:06)
[2021-03-23] MEDS ORDERED: Midazolam HCl 2 mg/2 ml Vial ONE (12:26)
[2021-03-23] MEDS ORDERED: Rocuronium Bromide 10 MG/ML (10ML VIAL) ONE (12:42)
[2021-03-23] MEDS ORDERED: Vecuronium 10 MG VIAL ONE (12:42)
[2021-03-23] MEDS ORDERED: PROPOFOL 200 MG/20 ML VIAL ONE (12:42)
[2021-03-23] MEDS: Sodium Chloride 0.45% 1,000 ML IV SCH (13:46)
[2021-03-23] MEDS: fentaNYL 100 mcg/hour Patch TD SCH (14:41)
[2021-03-24] MEDS: Dexmedetomidine 1,000 MCG in Sodium Chloride 0.9% 250 ML 240 ML IVPB SCH ×4 (00:07→18:02)
[2021-03-24] MEDS: Enalaprilat Dihydrate 1.25 MG/ML VIAL SLOW IVP SCH ×4 (00:09→18:54)
[2021-03-24] MEDS: Metoclopramide HCl 10 MG/2 ML VIAL IVP SCH ×3 (00:09→16:42)
[2021-03-24] MEDS: Morphine 2 MG/ML VIAL SLOW IVP PRN ×3 (02:25→13:25)
[2021-03-24 04:40] LABS: Anion Gap 12 mmol/L (10-20); BUN (Urea Nitrogen) 12 mg/dL (8.9-20.6); Calc. Creatinine Clearance 264 mL/min (70-130); Calcium 8.4 mg/dL (7.8-10.44); Carbon Dioxide 27 mmol/L (22-29); Chloride 102 mmol/L (98-107); Glucose 88 mg/dL (70-105); Potassium 3.7 mmol/L (3.5-5.1); Sodium 137 mmol/L (136-145)
[2021-03-24 04:42] LABS: Band 6 % (5-11); Hemoglobin 9.2 g/dL (14.0-18.0); Lymphocytes 15 % (21-51); MDiff Complete? YES; Mean Corpuscular HGB CONC 33.5 g/dL (32.0-36.0); Mean Corpuscular Hemoglobin 33.7 pg (27.0-31.0); Mean Platelet Volume 8.6 fL (7.4-10.4); Monocytes 5 % (0-10); Neutrophil 74 % (42-75); Platelet Count 231 thou/uL (130-400); RBC Distribution Width 14.9 % (11.5-14.5); Red Blood Cell (RBC) Count 2.72 mill/uL (4.70-6.10); White Blood Cell (WBC) Count 6.5 thou/uL (4.8-10.8)
[2021-03-24] MEDS: Cefepime 2 GM in Sodium Chloride 0.9% 100 ML IVPB SCH ×2 (05:01→16:41)
[2021-03-24 07:29] LABS: Actual Bicarbonate (HCO3a) 28.9 mEq/L (22-28); Base Excess (BEa) 4.4 mEq/L (-2.0 to +3.0); CO2 Tension 42.8 mmHg (35.0-45.0); Calcium, Ionized (arterial) 1.15 mmol/L (1.12-1.30); Carboxyhemoglobin (COHb) 1.2 gm% (0.0-3.0); Hemoglobin (Hb) 9.5 g/dL (14.0-18.0); O2 Tension (PaO2), arterial 90.9 mmHg (80.0-100.0); Potassium - ABG Lab 3.54 mmol/L (3.70-5.30); pH, Arterial 7.45 (7.35-7.45)
[2021-03-24 08:13] LABS: Puncture Site LRA
[2021-03-24] MEDS: guaiFENesin 200 MG TAB PO SCH ×2 (09:44→20:05)
[2021-03-24] MEDS: Cholecalciferol 1,000 UNITS (25 MCG) TAB PO SCH (09:44)
[2021-03-24] MEDS: Ascorbic Acid 500 mg Chewable Tablet PO SCH (09:44)
[2021-03-24] MEDS: Senokot S 8.6-50 MG TAB PO SCH ×2 (09:44→20:05)
[2021-03-24] MEDS: Polyethylene Glycol 3350 17 GM Packet PO SCH (09:45)
[2021-03-24] MEDS: methylPREDNISolone Sod Succ 40 MG VIAL IVP SCH (09:45)
[2021-03-24] MEDS: Zinc Sulfate 220 MG CAP PO SCH (09:45)
[2021-03-24] MEDS: cloNIDine 0.1 MG TAB PO SCH ×2 (09:45→20:05)
[2021-03-24] MEDS: Pantoprazole 40 MG GRANULES PACKET PER TUBE SCH ×2 (09:45→20:05)
[2021-03-24] MEDS: Lorazepam 2 MG/ML VIAL SLOW IVP PRN (09:46)
[2021-03-24] MEDS ORDERED: Enoxaparin Sodium 40 MG/0.4 ML SYRINGE SC SCH (12:00)
[2021-03-24] MEDS: Enoxaparin Sodium 40 MG/0.4 ML SYRINGE SC SCH (20:05)
[2021-03-24] MEDS: Sodium Chloride 0.45% 1,000 ML IV SCH (22:00)
[2021-03-24] MEDS: Acetaminophen 650 MG/20.3 ML UDCUP PO PRN (22:33)
[2021-03-25] MEDS: Enalaprilat Dihydrate 1.25 MG/ML VIAL SLOW IVP SCH ×4 (00:28→17:49)
[2021-03-25] MEDS: Metoclopramide HCl 10 MG/2 ML VIAL IVP SCH ×3 (00:28→17:00)
[2021-03-25] MEDS: Dexmedetomidine 1,000 MCG in Sodium Chloride 0.9% 250 ML 240 ML IVPB SCH ×4 (00:46→20:52)
[2021-03-25] MEDS: Morphine 2 MG/ML VIAL SLOW IVP PRN ×2 (01:26→21:03)
[2021-03-25] MEDS: Lorazepam 2 MG/ML VIAL SLOW IVP PRN ×2 (01:26→21:03)
[2021-03-25 04:45] LABS: Anion Gap 8 mmol/L (10-20); BUN (Urea Nitrogen) 15 mg/dL (8.9-20.6); Calc. Creatinine Clearance 271 mL/min (70-130); Calcium 8.5 mg/dL (7.8-10.44); Carbon Dioxide 31 mmol/L (22-29); Chloride 99 mmol/L (98-107); Glucose 119 mg/dL (70-105); Potassium 3.5 mmol/L (3.5-5.1); Sodium 134 mmol/L (136-145)
[2021-03-25 05:06] LABS: Hemoglobin 8.4 g/dL (14.0-18.0); Mean Corpuscular HGB CONC 33.2 g/dL (32.0-36.0); Mean Corpuscular Hemoglobin 33.4 pg (27.0-31.0); Mean Platelet Volume 8.3 fL (7.4-10.4); Platelet Count 258 thou/uL (130-400); RBC Distribution Width 14.8 % (11.5-14.5); Red Blood Cell (RBC) Count 2.52 mill/uL (4.70-6.10); White Blood Cell (WBC) Count 5.3 thou/uL (4.8-10.8)
[2021-03-25] MEDS: Cefepime 2 GM in Sodium Chloride 0.9% 100 ML IVPB SCH ×2 (05:07→17:49)
[2021-03-25 05:40] LABS: Band 5 % (5-11); Eosinophils 2 % (0-10); Lymphocytes 21 % (21-51); MDiff Complete? YES; Macrocytosis SLIGHT = 6-15 cells (100X) (0-5/hpf); Monocytes 8 % (0-10); Neutrophil 64 % (42-75); Platelet Morphology Comment Appears Adequate
[2021-03-25 07:38] LABS: Base Excess (BEa) 7.1 mEq/L (-2.0 to +3.0); CO2 Tension 47.2 mmHg (35.0-45.0); Calcium, Ionized (arterial) 1.15 mmol/L (1.12-1.30); Carboxyhemoglobin (COHb) 1.3 gm% (0.0-3.0); Hemoglobin (Hb) 9.4 g/dL (14.0-18.0); O2 Tension (PaO2), arterial 73.3 mmHg (80.0-100.0); Potassium - ABG Lab 3.56 mmol/L (3.70-5.30); pH, Arterial 7.45 (7.35-7.45)
[2021-03-25 08:12] LABS: Puncture Site RRA
[2021-03-25] MEDS: Ascorbic Acid 500 mg Chewable Tablet PO SCH (09:13)
[2021-03-25] MEDS: Polyethylene Glycol 3350 17 GM Packet PO SCH (09:14)
[2021-03-25] MEDS: methylPREDNISolone Sod Succ 40 MG VIAL IVP SCH (09:14)
[2021-03-25] MEDS: Zinc Sulfate 220 MG CAP PO SCH (09:14)
[2021-03-25] MEDS: Senokot S 8.6-50 MG TAB PO SCH ×2 (09:15→20:32)
[2021-03-25] MEDS: guaiFENesin 200 MG TAB PO SCH ×2 (09:15→20:33)
[2021-03-25] MEDS: Aspirin 81 mg Enteric Coated Tablet PO SCH (09:15)
[2021-03-25] MEDS: cloNIDine 0.1 MG TAB PO SCH ×2 (09:16→20:32)
[2021-03-25] MEDS: Cholecalciferol 1,000 UNITS (25 MCG) TAB PO SCH (09:16)
[2021-03-25] MEDS: Pantoprazole 40 MG GRANULES PACKET PER TUBE SCH ×2 (09:16→22:03)
[2021-03-25] MEDS: Enoxaparin Sodium 40 MG/0.4 ML SYRINGE SC SCH ×2 (09:16→20:33)
[2021-03-25] MEDS ORDERED: Potassium Chloride 40 MEQ in Sodium Chloride 0.9% 250 ML 250 ML IVPB SCH (16:00)
[2021-03-25] MEDS: Sodium Chloride 0.45% 1,000 ML IV SCH (23:34)
[2021-03-26] MEDS: Enalaprilat Dihydrate 1.25 MG/ML VIAL SLOW IVP SCH ×4 (00:01→17:36)
[2021-03-26] MEDS: Metoclopramide HCl 10 MG/2 ML VIAL IVP SCH ×3 (00:57→17:29)
[2021-03-26] MEDS: Cefepime 2 GM in Sodium Chloride 0.9% 100 ML IVPB SCH ×2 (04:43→17:53)
[2021-03-26] MEDS: Dexmedetomidine 1,000 MCG in Sodium Chloride 0.9% 250 ML 240 ML IVPB SCH ×3 (04:43→23:20)
[2021-03-26] MEDS: Acetaminophen 650 MG/20.3 ML UDCUP PO PRN ×2 (04:53→13:29)
[2021-03-26 05:13] LABS: Hemoglobin 8.6 g/dL (14.0-18.0); Mean Corpuscular HGB CONC 33.7 g/dL (32.0-36.0); Mean Platelet Volume 8.4 fL (7.4-10.4); Platelet Count 287 thou/uL (130-400); RBC Distribution Width 14.8 % (11.5-14.5); Red Blood Cell (RBC) Count 2.52 mill/uL (4.70-6.10); White Blood Cell (WBC) Count 5.2 thou/uL (4.8-10.8)
[2021-03-26 05:28] LABS: ALT (SGPT) 65 U/L (8-55); AST (SGOT) 27 U/L (5-34); Albumin 2.4 g/dL (3.5-5.0); Alkaline Phosphatase 61 U/L (40-110); Anion Gap 11 mmol/L (10-20); BUN (Urea Nitrogen) 14 mg/dL (8.9-20.6); Bilirubin, Total 0.5 mg/dL (0.2-1.2); Calc. Creatinine Clearance 255 mL/min (70-130); Calcium 8.4 mg/dL (7.8-10.44); Carbon Dioxide 31 mmol/L (22-29); Chloride 99 mmol/L (98-107); Globulin 3.3 g/dL (2.4-3.5); Glucose 126 mg/dL (70-105); Magnesium 1.8 mg/dL (1.6-2.6); Potassium 4.1 mmol/L (3.5-5.1); Protein, Total 5.7 g/dL (6.0-8.3); Sodium 137 mmol/L (136-145)
[2021-03-26 05:52] LABS: Band 3 % (5-11); Eosinophils 5 % (0-10); Lymphocytes 27 % (21-51); MDiff Complete? YES; Metamyelocyte 1 % (0-0); Monocytes 12 % (0-10); Neutrophil 52 % (42-75)
[2021-03-26] MEDS ORDERED: Magnesium 2 GM/50 ML 2 GM in Premix Bag 1 BAG IVPB SCH (06:45)
[2021-03-26] MEDS: guaiFENesin 200 MG TAB PO SCH ×2 (09:25→20:25)
[2021-03-26] MEDS: Polyethylene Glycol 3350 17 GM Packet PO SCH (09:25)
[2021-03-26] MEDS: Ascorbic Acid 500 mg Chewable Tablet PO SCH (09:25)
[2021-03-26] MEDS: Aspirin 81 mg Enteric Coated Tablet PO SCH (09:25)
[2021-03-26] MEDS: Zinc Sulfate 220 MG CAP PO SCH (09:25)
[2021-03-26] MEDS: Enoxaparin Sodium 40 MG/0.4 ML SYRINGE SC SCH ×2 (09:25→21:38)
[2021-03-26] MEDS: methylPREDNISolone Sod Succ 40 MG VIAL IVP SCH (09:25)
[2021-03-26] MEDS: cloNIDine 0.1 MG TAB PO SCH ×2 (09:26→20:25)
[2021-03-26] MEDS: Senokot S 8.6-50 MG TAB PO SCH ×2 (09:26→20:25)
[2021-03-26] MEDS: Pantoprazole 40 MG GRANULES PACKET PER TUBE SCH ×2 (09:26→20:24)
[2021-03-26] MEDS: Cholecalciferol 1,000 UNITS (25 MCG) TAB PO SCH (09:26)
[2021-03-26] MEDS: Morphine 2 MG/ML VIAL SLOW IVP PRN ×3 (13:29→21:38)
[2021-03-26] MEDS: fentaNYL 100 mcg/hour Patch TD SCH (13:38)
[2021-03-26] MEDS: Lorazepam 2 MG/ML VIAL SLOW IVP PRN (21:15)
[2021-03-26] MEDS: Sodium Chloride 0.45% 1,000 ML IV SCH (23:20)
[2021-03-27] MEDS: Metoclopramide HCl 10 MG/2 ML VIAL IVP SCH ×3 (01:08→14:42)
[2021-03-27] MEDS: Enalaprilat Dihydrate 1.25 MG/ML VIAL SLOW IVP SCH ×4 (03:34→18:33)
[2021-03-27 05:56] LABS: Hemoglobin 9.5 g/dL (14.0-18.0); Mean Corpuscular HGB CONC 33.2 g/dL (32.0-36.0); Mean Corpuscular Volume 99.4 fL (78.0-98.0); Platelet Count 292 thou/uL (130-400); RBC Distribution Width 14.8 % (11.5-14.5); Red Blood Cell (RBC) Count 2.89 mill/uL (4.70-6.10); White Blood Cell (WBC) Count 5.2 thou/uL (4.8-10.8)
[2021-03-27] MEDS: Cefepime 2 GM in Sodium Chloride 0.9% 100 ML IVPB SCH (05:58)
[2021-03-27] MEDS: GUAIFENESIN SF SOLN 200 MG/10 ML UDCUP PO PRN ×2 (05:59→14:41)
[2021-03-27 06:10] LABS: Phosphorus 3.5 mg/dL (2.3-4.7)
[2021-03-27 06:13] LABS: Anion Gap 9 mmol/L (10-20); BUN (Urea Nitrogen) 13 mg/dL (8.9-20.6); Bilirubin, Total 0.5 mg/dL (0.2-1.2); Calc. Creatinine Clearance 250 mL/min (70-130); Calcium 8.6 mg/dL (7.8-10.44); Carbon Dioxide 31 mmol/L (22-29); Chloride 99 mmol/L (98-107); Glucose 138 mg/dL (70-105); Potassium 3.9 mmol/L (3.5-5.1); Sodium 135 mmol/L (136-145)
[2021-03-27 06:14] LABS: ALT (SGPT) 60 U/L (8-55); AST (SGOT) 24 U/L (5-34); Albumin 2.6 g/dL (3.5-5.0); Alkaline Phosphatase 61 U/L (40-110); Globulin 3.4 g/dL (2.4-3.5); Magnesium 1.8 mg/dL (1.6-2.6)
[2021-03-27] MEDS ORDERED: Magnesium 2 GM/50 ML 2 GM in Premix Bag 1 BAG IVPB SCH (06:30)
[2021-03-27 06:34] LABS: Band 9 % (5-11); Eosinophils 5 % (0-10); Lymphocytes 28 % (21-51); MDiff Complete? YES; Monocytes 8 % (0-10); Neutrophil 50 % (42-75)
[2021-03-27] MEDS: Senokot S 8.6-50 MG TAB PO SCH ×2 (08:08→20:28)
[2021-03-27] MEDS: methylPREDNISolone Sod Succ 40 MG VIAL IVP SCH (08:08)
[2021-03-27] MEDS: Ascorbic Acid 500 mg Chewable Tablet PO SCH (08:08)
[2021-03-27] MEDS: cloNIDine 0.1 MG TAB PO SCH ×2 (08:09→20:28)
[2021-03-27] MEDS: guaiFENesin 200 MG TAB PO SCH ×2 (08:09→20:27)
[2021-03-27] MEDS: Zinc Sulfate 220 MG CAP PO SCH (08:09)
[2021-03-27] MEDS: Aspirin 81 mg Enteric Coated Tablet PO SCH (08:09)
[2021-03-27] MEDS: Cholecalciferol 1,000 UNITS (25 MCG) TAB PO SCH (08:09)
[2021-03-27] MEDS: Pantoprazole 40 MG GRANULES PACKET PER TUBE SCH ×2 (08:10→20:29)
[2021-03-27] MEDS: Enoxaparin Sodium 40 MG/0.4 ML SYRINGE SC SCH ×2 (09:13→20:28)
[2021-03-27] MEDS: Polyethylene Glycol 3350 17 GM Packet PO SCH ×2 (09:13→09:40)
[2021-03-27] MEDS ORDERED: Enalaprilat Dihydrate 1.25 MG/ML VIAL SLOW IVP PRN (20:18)
[2021-03-27] MEDS ORDERED: Metoclopramide HCl 10 MG/2 ML VIAL IVP PRN (20:19)
[2021-03-27] MEDS: fentaNYL 75 mcg/hour Patch TD SCH (21:29)
[2021-03-28] MEDS: Morphine 2 MG/ML VIAL SLOW IVP PRN ×3 (00:37→20:40)
[2021-03-28] MEDS: diphenhydrAMINE 50 MG/ML VIAL IVP PRN (00:38)
[2021-03-28] MEDS: Dexmedetomidine 1,000 MCG in Sodium Chloride 0.9% 250 ML 240 ML IVPB SCH (00:38)
[2021-03-28] MEDS: Sodium Chloride 0.45% 1,000 ML IV SCH (01:34)
[2021-03-28] MEDS: Lorazepam 2 MG/ML VIAL SLOW IVP PRN ×2 (03:18→12:33)
[2021-03-28 04:35] LABS: Anion Gap 9 mmol/L (10-20); BUN (Urea Nitrogen) 11 mg/dL (8.9-20.6); Calc. Creatinine Clearance 241 mL/min (70-130); Calcium 8.7 mg/dL (7.8-10.44); Carbon Dioxide 32 mmol/L (22-29); Chloride 95 mmol/L (98-107); Glucose 128 mg/dL (70-105); Potassium 4.3 mmol/L (3.5-5.1); Sodium 132 mmol/L (136-145)
[2021-03-28 05:16] LABS: Band 14 % (5-11); Eosinophils 2 % (0-10); Hemoglobin 10.4 g/dL (14.0-18.0); Lymphocytes 27 % (21-51); MDiff Complete? YES; Mean Corpuscular HGB CONC 32.5 g/dL (32.0-36.0); Mean Corpuscular Hemoglobin 32.3 pg (27.0-31.0); Mean Corpuscular Volume 99.4 fL (78.0-98.0); Mean Platelet Volume 8.5 fL (7.4-10.4); Monocytes 1 % (0-10); Neutrophil 54 % (42-75); Platelet Count 313 thou/uL (130-400); Platelet Morphology Comment Appears Adequate; RBC Morphology Normal; Reactive Lymphocytes 2 % (0-10); Red Blood Cell (RBC) Count 3.23 mill/uL (4.70-6.10); White Blood Cell (WBC) Count 6.1 thou/uL (4.8-10.8)
[2021-03-28] MEDS: GUAIFENESIN SF SOLN 200 MG/10 ML UDCUP PO PRN ×2 (07:14→20:40)
[2021-03-28] MEDS: Polyethylene Glycol 3350 17 GM Packet PO SCH (08:51)
[2021-03-28] MEDS: guaiFENesin 200 MG TAB PO SCH ×2 (08:51→20:40)
[2021-03-28] MEDS: Cholecalciferol 1,000 UNITS (25 MCG) TAB PO SCH (08:51)
[2021-03-28] MEDS: Senokot S 8.6-50 MG TAB PO SCH (08:52)
[2021-03-28] MEDS: Ascorbic Acid 500 mg Chewable Tablet PO SCH (08:52)
[2021-03-28] MEDS: cloNIDine 0.1 MG TAB PO SCH ×2 (08:52→20:40)
[2021-03-28] MEDS: predniSONE 20 MG TAB PO SCH (08:52)
[2021-03-28] MEDS: Enoxaparin Sodium 40 MG/0.4 ML SYRINGE SC SCH ×2 (08:52→20:38)
[2021-03-28] MEDS: Pantoprazole 40 MG GRANULES PACKET PER TUBE SCH (08:53)
[2021-03-28] MEDS: Zinc Sulfate 220 MG CAP PO SCH (08:53)
[2021-03-28] MEDS: Aspirin Chewable 81 MG TAB PO SCH (08:54)
[2021-03-28] MEDS: cloNIDine 0.1 MG TAB PO PRN (14:23)
[2021-03-28] MEDS: Acetaminophen 650 MG/20.3 ML UDCUP PO PRN (20:38)
[2021-03-28] MEDS: Loperamide HCl 2 MG CAP PO PRN (20:40)
[2021-03-28] MEDS: Ondansetron PF 4 MG/2 ML Vial IVP PRN (20:40)
[2021-03-29] MEDS: Ondansetron PF 4 MG/2 ML Vial IVP PRN (03:06)
[2021-03-29] MEDS: Morphine 2 MG/ML VIAL SLOW IVP PRN (03:06)
[2021-03-29] MEDS: Dexmedetomidine 1,000 MCG in Sodium Chloride 0.9% 250 ML 240 ML IVPB SCH ×2 (03:07→14:47)
[2021-03-29] MEDS: Lorazepam 2 MG/ML VIAL SLOW IVP PRN (03:07)
[2021-03-29] MEDS: Pantoprazole 40 MG GRANULES PACKET PER TUBE SCH ×3 (03:09→20:22)
[2021-03-29] MEDS: Senokot S 8.6-50 MG TAB PO SCH ×3 (03:10→20:22)
[2021-03-29] MEDS: Sodium Chloride 0.45% 1,000 ML IV SCH (03:11)
[2021-03-29 05:03] LABS: Mean Corpuscular HGB CONC 33.2 g/dL (32.0-36.0); Mean Corpuscular Hemoglobin 32.7 pg (27.0-31.0); Mean Corpuscular Volume 98.3 fL (78.0-98.0); Mean Platelet Volume 8.3 fL (7.4-10.4); Platelet Count 303 thou/uL (130-400); RBC Distribution Width 14.9 % (11.5-14.5); Red Blood Cell (RBC) Count 3.07 mill/uL (4.70-6.10); White Blood Cell (WBC) Count 7.5 thou/uL (4.8-10.8)
[2021-03-29 05:20] LABS: Anion Gap 12 mmol/L (10-20); BUN (Urea Nitrogen) 12 mg/dL (8.9-20.6); Calc. Creatinine Clearance 247 mL/min (70-130); Calcium 8.7 mg/dL (7.8-10.44); Carbon Dioxide 28 mmol/L (22-29); Chloride 98 mmol/L (98-107); Glucose 122 mg/dL (70-105); Potassium 4.1 mmol/L (3.5-5.1); Sodium 134 mmol/L (136-145)
[2021-03-29] MEDS: GUAIFENESIN SF SOLN 200 MG/10 ML UDCUP PO PRN ×2 (05:30→14:47)
[2021-03-29 05:39] LABS: Band 11 % (5-11); Eosinophils 4 % (0-10); Lymphocytes 14 % (21-51); MDiff Complete? YES; Metamyelocyte 1 % (0-0); Monocytes 13 % (0-10); Myelocyte 1 % (0-0); Neutrophil 56 % (42-75)
[2021-03-29] MEDS: Ascorbic Acid 500 mg Chewable Tablet PO SCH (08:25)
[2021-03-29] MEDS: Enoxaparin Sodium 40 MG/0.4 ML SYRINGE SC SCH ×2 (08:25→20:21)
[2021-03-29] MEDS: Polyethylene Glycol 3350 17 GM Packet PO SCH (08:25)
[2021-03-29] MEDS: cloNIDine 0.1 MG TAB PO SCH ×2 (08:25→20:21)
[2021-03-29] MEDS: Aspirin Chewable 81 MG TAB PO SCH (08:26)
[2021-03-29] MEDS: Zinc Sulfate 220 MG CAP PO SCH (08:26)
[2021-03-29] MEDS: Cholecalciferol 1,000 UNITS (25 MCG) TAB PO SCH (08:26)
[2021-03-29] MEDS: predniSONE 20 MG TAB PO SCH (08:26)
[2021-03-29] MEDS: guaiFENesin 200 MG TAB PO SCH (09:14)
[2021-03-29] MEDS: GUAIFENESIN SF SOLN 200 MG/10 ML UDCUP PO SCH (20:20)
[2021-03-29] MEDS: Loperamide HCl 2 MG CAP PO PRN (20:21)
[2021-03-29] MEDS: Lorazepam 1 MG TAB PO SCH (20:21)
[2021-03-30] MEDS: diphenhydrAMINE 50 MG/ML VIAL IVP PRN (00:33)
[2021-03-30] MEDS: Ondansetron PF 4 MG/2 ML Vial IVP PRN (00:33)
[2021-03-30] MEDS: Morphine 2 MG/ML VIAL SLOW IVP PRN ×2 (00:33→02:03)
[2021-03-30] MEDS: Sodium Chloride 0.45% 1,000 ML IV SCH ×2 (00:33→22:59)
[2021-03-30] MEDS: Metoprolol Tartrate 5 MG/5 ML VIAL IVP PRN (02:03)
[2021-03-30] MEDS: Cholecalciferol 1,000 UNITS (25 MCG) TAB PO SCH (09:08)
[2021-03-30] MEDS: Pantoprazole 40 MG GRANULES PACKET PER TUBE SCH ×2 (09:08→20:12)
[2021-03-30] MEDS: Lorazepam 1 MG TAB PO SCH ×3 (09:08→20:11)
[2021-03-30] MEDS: Enoxaparin Sodium 40 MG/0.4 ML SYRINGE SC SCH ×2 (09:08→20:12)
[2021-03-30] MEDS: cloNIDine 0.1 MG TAB PO SCH ×2 (09:08→20:11)
[2021-03-30] MEDS: Ascorbic Acid 500 mg Chewable Tablet PO SCH (09:08)
[2021-03-30] MEDS: predniSONE 20 MG TAB PO SCH (09:08)
[2021-03-30] MEDS: Zinc Sulfate 220 MG CAP PO SCH (09:08)
[2021-03-30] MEDS: Aspirin Chewable 81 MG TAB PO SCH (09:08)
[2021-03-30] MEDS: Polyethylene Glycol 3350 17 GM Packet PO SCH (09:09)
[2021-03-30] MEDS: GUAIFENESIN SF SOLN 200 MG/10 ML UDCUP PO SCH ×2 (09:09→20:11)
[2021-03-30] MEDS: Acetaminophen 650 MG/20.3 ML UDCUP PO PRN (09:15)
[2021-03-30] MEDS: Senokot S 8.6-50 MG TAB PO SCH ×2 (09:26→20:12)
[2021-03-30] MEDS: Dexmedetomidine 1,000 MCG in Sodium Chloride 0.9% 250 ML 240 ML IVPB SCH ×2 (12:36→21:48)
[2021-03-30] MEDS: GUAIFENESIN SF SOLN 200 MG/10 ML UDCUP PO PRN (14:12)
[2021-03-30] MEDS: Temazepam 15 MG CAP PER TUBE PRN (20:12)
[2021-03-30] MEDS: fentaNYL 75 mcg/hour Patch TD SCH (20:13)
[2021-03-30] MEDS: Benzonatate 100 MG CAP PO PRN (23:52)
[2021-03-31] MEDS: GUAIFENESIN SF SOLN 200 MG/10 ML UDCUP PO PRN (02:11)
[2021-03-31 06:58] LABS: Anion Gap 12 mmol/L (10-20); BUN (Urea Nitrogen) 13 mg/dL (8.9-20.6); Calc. Creatinine Clearance 241 mL/min (70-130); Carbon Dioxide 28 mmol/L (22-29); Chloride 99 mmol/L (98-107); Glucose 129 mg/dL (70-105); Potassium 4.4 mmol/L (3.5-5.1); Sodium 135 mmol/L (136-145)
[2021-03-31 07:43] LABS: Band 2 % (5-11); Eosinophils 3 % (0-10); Lymphocytes 15 % (21-51); MDiff Complete? YES; Mean Corpuscular HGB CONC 32.6 g/dL (32.0-36.0); Mean Corpuscular Hemoglobin 31.9 pg (27.0-31.0); Mean Corpuscular Volume 98.1 fL (78.0-98.0); Mean Platelet Volume 8.3 fL (7.4-10.4); Monocytes 12 % (0-10); Neutrophil 68 % (42-75); Platelet Count 328 thou/uL (130-400); Platelet Morphology Comment Appears Adequate; RBC Distribution Width 15.1 % (11.5-14.5); RBC Morphology Normal; Red Blood Cell (RBC) Count 3.13 mill/uL (4.70-6.10); White Blood Cell (WBC) Count 9.2 thou/uL (4.8-10.8)
[2021-03-31] MEDS: Ascorbic Acid 500 mg Chewable Tablet PO SCH (09:28)
[2021-03-31] MEDS: Cholecalciferol 1,000 UNITS (25 MCG) TAB PO SCH (09:28)
[2021-03-31] MEDS: predniSONE 20 MG TAB PO SCH (09:28)
[2021-03-31] MEDS: Aspirin Chewable 81 MG TAB PO SCH (09:28)
[2021-03-31] MEDS: cloNIDine 0.1 MG TAB PO SCH ×2 (09:29→20:22)
[2021-03-31] MEDS: Senokot S 8.6-50 MG TAB PO SCH ×2 (09:29→20:23)
[2021-03-31] MEDS: Zinc Sulfate 220 MG CAP PO SCH (09:30)
[2021-03-31] MEDS: Pantoprazole 40 MG GRANULES PACKET PER TUBE SCH ×2 (09:31→20:22)
[2021-03-31] MEDS: Lorazepam 1 MG TAB PO SCH ×3 (09:31→20:22)
[2021-03-31] MEDS: Enoxaparin Sodium 40 MG/0.4 ML SYRINGE SC SCH ×2 (09:31→20:22)
[2021-03-31] MEDS: Polyethylene Glycol 3350 17 GM Packet PO SCH (09:32)
[2021-03-31] MEDS: GUAIFENESIN SF SOLN 200 MG/10 ML UDCUP PO SCH ×2 (09:32→20:21)
[2021-03-31] MEDS: Dexmedetomidine 1,000 MCG in Sodium Chloride 0.9% 250 ML 240 ML IVPB SCH (12:00)
[2021-03-31] MEDS: Metoprolol Tartrate 5 MG/5 ML VIAL IVP PRN (14:52)
[2021-03-31] MEDS: Temazepam 15 MG CAP PER TUBE PRN (20:22)
[2021-03-31] MEDS: Benzonatate 100 MG CAP PO PRN (20:22)
[2021-03-31] MEDS: Sodium Chloride 0.45% 1,000 ML IV SCH (23:13)
[2021-04-01] MEDS: Lorazepam 1 MG TAB PO SCH ×3 (08:47→19:58)
[2021-04-01] MEDS: cloNIDine 0.1 MG TAB PO SCH ×2 (08:48→19:58)
[2021-04-01] MEDS: Aspirin Chewable 81 MG TAB PO SCH (08:48)
[2021-04-01] MEDS: GUAIFENESIN SF SOLN 200 MG/10 ML UDCUP PO SCH ×2 (08:49→19:59)
[2021-04-01] MEDS: Senokot S 8.6-50 MG TAB PO SCH ×2 (08:49→19:58)
[2021-04-01] MEDS: Pantoprazole 40 MG GRANULES PACKET PER TUBE SCH ×2 (08:49→19:59)
[2021-04-01] MEDS: predniSONE 20 MG TAB PO SCH (08:50)
[2021-04-01] MEDS: Zinc Sulfate 220 MG CAP PO SCH (08:50)
[2021-04-01] MEDS: Ascorbic Acid 500 mg Chewable Tablet PO SCH (08:50)
[2021-04-01] MEDS: Cholecalciferol 1,000 UNITS (25 MCG) TAB PO SCH (08:50)
[2021-04-01] MEDS: Enoxaparin Sodium 40 MG/0.4 ML SYRINGE SC SCH ×2 (08:51→19:59)
[2021-04-01] MEDS: Polyethylene Glycol 3350 17 GM Packet PO SCH (08:51)
[2021-04-01] MEDS: Dexmedetomidine 1,000 MCG in Sodium Chloride 0.9% 250 ML 240 ML IVPB SCH (08:59)
[2021-04-01] MEDS: Labetalol HCl 100 MG/20 ML VIAL SLOW IVP PRN (14:06)
[2021-04-01] MEDS: Temazepam 15 MG CAP PER TUBE PRN (19:58)
[2021-04-01] MEDS: Acetaminophen 650 MG/20.3 ML UDCUP PO PRN (20:05)
[2021-04-01] MEDS ORDERED: Trospium 20 MG TAB PO SCH (20:15)
[2021-04-02] MEDS: Sodium Chloride 0.45% 1,000 ML IV SCH (00:10)
[2021-04-02] MEDS: GUAIFENESIN SF SOLN 200 MG/10 ML UDCUP PO PRN ×3 (00:59→17:00)
[2021-04-02] MEDS: Dexmedetomidine 1,000 MCG in Sodium Chloride 0.9% 250 ML 240 ML IVPB SCH ×2 (02:13→20:53)
[2021-04-02 04:10] LABS: Anion Gap 15 mmol/L (10-20); BUN (Urea Nitrogen) 9 mg/dL (8.9-20.6); Calc. Creatinine Clearance 221 mL/min (70-130); Calcium 9.1 mg/dL (7.8-10.44); Carbon Dioxide 30 mmol/L (22-29); Chloride 93 mmol/L (98-107); Glucose 110 mg/dL (70-105); Potassium 4.6 mmol/L (3.5-5.1); Sodium 133 mmol/L (136-145)
[2021-04-02] MEDS: Metoprolol Tartrate 5 MG/5 ML VIAL IVP PRN ×2 (04:12→17:53)
[2021-04-02] MEDS: Acetaminophen 650 MG/20.3 ML UDCUP PO PRN ×2 (06:05→19:44)
[2021-04-02] MEDS: Labetalol HCl 100 MG/20 ML VIAL SLOW IVP PRN ×2 (06:06→09:40)
[2021-04-02] MEDS ORDERED: Morphine 2 MG/ML VIAL SLOW IVP SCH ×2 (07:00→22:30)
[2021-04-02] MEDS: cloNIDine 0.1 MG TAB PO PRN (07:05)
[2021-04-02] MEDS: predniSONE 20 MG TAB PO SCH (07:05)
[2021-04-02] MEDS: Senokot S 8.6-50 MG TAB PO SCH ×2 (08:31→19:10)
[2021-04-02] MEDS: Polyethylene Glycol 3350 17 GM Packet PO SCH (08:31)
[2021-04-02] MEDS: Enoxaparin Sodium 40 MG/0.4 ML SYRINGE SC SCH ×2 (08:31→19:09)
[2021-04-02] MEDS: GUAIFENESIN SF SOLN 200 MG/10 ML UDCUP PO SCH ×2 (08:31→19:16)
[2021-04-02] MEDS: Benzonatate 100 MG CAP PO PRN (08:31)
[2021-04-02] MEDS: Cholecalciferol 1,000 UNITS (25 MCG) TAB PO SCH (08:32)
[2021-04-02] MEDS: Pantoprazole 40 MG GRANULES PACKET PER TUBE SCH ×2 (08:32→19:10)
[2021-04-02] MEDS: Ascorbic Acid 500 mg Chewable Tablet PO SCH (08:32)
[2021-04-02] MEDS: Aspirin Chewable 81 MG TAB PO SCH (08:32)
[2021-04-02] MEDS: cloNIDine 0.1 MG TAB PO SCH ×2 (08:32→19:10)
[2021-04-02] MEDS: Zinc Sulfate 220 MG CAP PO SCH (08:32)
[2021-04-02] MEDS: Lorazepam 1 MG TAB PO SCH ×3 (08:32→19:10)
[2021-04-02] MEDS: Labetalol HCl 100 MG/20 ML VIAL SLOW IVP SCH ×3 (14:37→23:18)
[2021-04-02] MEDS ORDERED: Amlodipine 10 MG TAB PO SCH (17:15)
[2021-04-02] MEDS: Temazepam 15 MG CAP PER TUBE PRN (19:10)
[2021-04-02] MEDS: fentaNYL 75 mcg/hour Patch TD SCH (19:16)
[2021-04-02 22:02] LABS: #Lymphocytes 0.7 thou/uL (1.20-3.40); #Neutrophils 14.5 thou/uL (1.40-6.50); %Basophils 0.2 % (0.0-1.0); %Eosinophils 0.3 % (0.0-10.0); %Monocytes 6.3 % (0.0-10.0); %Neutrophils 89.3 % (42.0-75.0); Mean Corpuscular HGB CONC 35.1 g/dL (32.0-36.0); Mean Corpuscular Hemoglobin 34.1 pg (27.0-31.0); Mean Platelet Volume 8.3 fL (7.4-10.4); Platelet Count 407 thou/uL (130-400); RBC Distribution Width 15.2 % (11.5-14.5); Red Blood Cell (RBC) Count 3.22 mill/uL (4.70-6.10); White Blood Cell (WBC) Count 16.3 thou/uL (4.8-10.8)
[2021-04-02 22:18] LABS: Lactic Acid 1.6 mmol/L (0.5-2.2)
[2021-04-02 22:24] LABS: Bilirubin Negative (Negative); Blood, Urine 3+ (Negative); Clarity Extra Turbid (Clear); Glucose, Urine (Dipstick) Normal (Negative); Ketone, Urine Trace mg/dL (Negative); Leukocyte 250 Leu/uL (Negative); Mucous/LPF 2+ LPF (<2+); Nitrite Negative (Negative); Protein, Urine (Dipstick) 200 mg/dL (Neg-Trace); RBC/HPF Greater than 50 HPF (0-3); Specific Gravity, Urine 1.039 (1.002-1.036); Squamous Epithelial None Seen HPF (0-3); WBC/HPF Greater than 50 HPF (0-3); pH, Urine 5.5 (5.0-9.0)
[2021-04-02 22:34] LABS: Bacteria/HPF 3+ HPF (None Seen)
[2021-04-02 22:35] LABS: Urine Culture Reflex Yes Yes
[2021-04-02] MEDS: cefTRIAXone\\ROCEPHIN 1 GM in Sodium Chloride 0.9% 100 ML IVPB SCH (23:18)
[2021-04-03] MEDS: GUAIFENESIN SF SOLN 200 MG/10 ML UDCUP PO PRN (00:16)
[2021-04-03] MEDS: Benzonatate 100 MG CAP PO PRN (00:17)
[2021-04-03] MEDS: Labetalol HCl 100 MG/20 ML VIAL SLOW IVP SCH ×6 (02:09→22:53)
[2021-04-03] MEDS: Metoprolol Tartrate 5 MG/5 ML VIAL IVP PRN (03:52)
[2021-04-03] MEDS: Dexmedetomidine 1,000 MCG in Sodium Chloride 0.9% 250 ML 240 ML IVPB SCH (05:45)
[2021-04-03] MEDS: Lorazepam 1 MG TAB PO SCH ×3 (07:44→20:19)
[2021-04-03] MEDS: GUAIFENESIN SF SOLN 200 MG/10 ML UDCUP PO SCH ×2 (08:02→20:18)
[2021-04-03] MEDS: Ascorbic Acid 500 mg Chewable Tablet PO SCH (08:04)
[2021-04-03] MEDS: Aspirin Chewable 81 MG TAB PO SCH (08:04)
[2021-04-03] MEDS: Cholecalciferol 1,000 UNITS (25 MCG) TAB PO SCH (08:04)
[2021-04-03] MEDS: Senokot S 8.6-50 MG TAB PO SCH ×2 (08:05→20:18)
[2021-04-03] MEDS: Zinc Sulfate 220 MG CAP PO SCH (08:05)
[2021-04-03] MEDS: Pantoprazole 40 MG GRANULES PACKET PER TUBE SCH ×2 (08:05→20:19)
[2021-04-03] MEDS: Amlodipine 10 MG TAB PO SCH (08:06)
[2021-04-03] MEDS: Polyethylene Glycol 3350 17 GM Packet PO SCH (08:06)
[2021-04-03] MEDS: cloNIDine 0.1 MG TAB PO SCH ×2 (08:06→20:18)
[2021-04-03] MEDS: predniSONE 20 MG TAB PO SCH (08:07)
[2021-04-03] MEDS ORDERED: Lidocaine 1% w/Epinephrine 1:100K 20 ML VIAL ONE ×2 (09:31→09:33)
[2021-04-03] MEDS: Enoxaparin Sodium 40 MG/0.4 ML SYRINGE SC SCH ×2 (11:24→20:18)
[2021-04-03] MEDS: Temazepam 15 MG CAP PER TUBE PRN (20:19)
[2021-04-03] MEDS: cefTRIAXone\\ROCEPHIN 1 GM in Sodium Chloride 0.9% 100 ML IVPB SCH (22:53)
[2021-04-04] MEDS: Acetaminophen 650 MG/20.3 ML UDCUP PO PRN ×2 (00:37→09:17)
[2021-04-04] MEDS: Labetalol HCl 100 MG/20 ML VIAL SLOW IVP SCH ×6 (03:54→23:29)
[2021-04-04 04:31] LABS: #Eosinphils 0.2 thou/uL (0.0-0.7); #Lymphocytes 1.8 thou/uL (1.20-3.40); #Monocytes 1.1 thou/uL (0.11-0.59); #Neutrophils 7.2 thou/uL (1.40-6.50); %Basophils 0.1 % (0.0-1.0); %Eosinophils 1.6 % (0.0-10.0); %Lymphocytes 17.7 % (21.0-51.0); %Monocytes 10.4 % (0.0-10.0); %Neutrophils 70.1 % (42.0-75.0); Hemoglobin 9.8 g/dL (14.0-18.0); Mean Corpuscular HGB CONC 32.4 g/dL (32.0-36.0); Mean Corpuscular Hemoglobin 31.3 pg (27.0-31.0); Mean Corpuscular Volume 96.7 fL (78.0-98.0); Mean Platelet Volume 8.2 fL (7.4-10.4); Platelet Count 343 thou/uL (130-400); RBC Distribution Width 15.6 % (11.5-14.5); Red Blood Cell (RBC) Count 3.14 mill/uL (4.70-6.10); White Blood Cell (WBC) Count 10.2 thou/uL (4.8-10.8)
[2021-04-04 04:54] LABS: Anion Gap 13 mmol/L (10-20); BUN (Urea Nitrogen) 16 mg/dL (8.9-20.6); Calc. Creatinine Clearance 226 mL/min (70-130); Calcium 9.1 mg/dL (7.8-10.44); Carbon Dioxide 32 mmol/L (22-29); Chloride 95 mmol/L (98-107); Glucose 123 mg/dL (70-105); Potassium 3.8 mmol/L (3.5-5.1); Sodium 136 mmol/L (136-145)
[2021-04-04] MEDS: Cholecalciferol 1,000 UNITS (25 MCG) TAB PO SCH (09:17)
[2021-04-04] MEDS: Ascorbic Acid 500 mg Chewable Tablet PO SCH (09:17)
[2021-04-04] MEDS: Zinc Sulfate 220 MG CAP PO SCH (09:17)
[2021-04-04] MEDS: Enoxaparin Sodium 40 MG/0.4 ML SYRINGE SC SCH ×2 (09:17→20:39)
[2021-04-04] MEDS: Senokot S 8.6-50 MG TAB PO SCH ×2 (09:17→20:38)
[2021-04-04] MEDS: Polyethylene Glycol 3350 17 GM Packet PO SCH (09:18)
[2021-04-04] MEDS: cloNIDine 0.1 MG TAB PO SCH ×2 (09:18→20:38)
[2021-04-04] MEDS: Pantoprazole 40 MG GRANULES PACKET PER TUBE SCH ×2 (09:18→20:38)
[2021-04-04] MEDS: predniSONE 20 MG TAB PO SCH (09:18)
[2021-04-04] MEDS: Lorazepam 1 MG TAB PO SCH ×3 (09:18→20:38)
[2021-04-04] MEDS: Amlodipine 10 MG TAB PO SCH (09:18)
[2021-04-04] MEDS: Aspirin Chewable 81 MG TAB PO SCH (09:18)
[2021-04-04] MEDS: GUAIFENESIN SF SOLN 200 MG/10 ML UDCUP PO SCH ×2 (09:20→20:40)
[2021-04-04] MEDS: traMADol HCl 50 MG TAB PO PRN ×2 (14:05→18:04)
[2021-04-04] MEDS: Temazepam 15 MG CAP PER TUBE PRN (20:40)
[2021-04-04] MEDS: cefTRIAXone\\ROCEPHIN 1 GM in Sodium Chloride 0.9% 100 ML IVPB SCH (23:27)
[2021-04-05] MEDS: Labetalol HCl 100 MG/20 ML VIAL SLOW IVP SCH ×6 (02:36→22:05)
[2021-04-05] MEDS: traMADol HCl 50 MG TAB PO PRN ×3 (02:38→22:08)
[2021-04-05] MEDS: predniSONE 20 MG TAB PO SCH (07:33)
[2021-04-05] MEDS: Ascorbic Acid 500 mg Chewable Tablet PO SCH (08:09)
[2021-04-05] MEDS: Lorazepam 1 MG TAB PO SCH ×3 (08:09→20:02)
[2021-04-05] MEDS: Enoxaparin Sodium 40 MG/0.4 ML SYRINGE SC SCH ×2 (08:09→20:03)
[2021-04-05] MEDS: Cholecalciferol 1,000 UNITS (25 MCG) TAB PO SCH (08:10)
[2021-04-05] MEDS: cloNIDine 0.1 MG TAB PO SCH ×2 (08:10→20:02)
[2021-04-05] MEDS: Aspirin Chewable 81 MG TAB PO SCH (08:10)
[2021-04-05] MEDS: Amlodipine 10 MG TAB PO SCH (08:10)
[2021-04-05] MEDS: Zinc Sulfate 220 MG CAP PO SCH (08:10)
[2021-04-05] MEDS: Pantoprazole 40 MG GRANULES PACKET PER TUBE SCH ×2 (08:10→20:02)
[2021-04-05] MEDS: GUAIFENESIN SF SOLN 200 MG/10 ML UDCUP PO SCH ×2 (08:12→20:03)
[2021-04-05] MEDS: Polyethylene Glycol 3350 17 GM Packet PO SCH (11:40)
[2021-04-05] MEDS: Senokot S 8.6-50 MG TAB PO SCH ×2 (11:40→20:02)
[2021-04-05] MEDS: Temazepam 15 MG CAP PER TUBE PRN (20:02)
[2021-04-05] MEDS: fentaNYL 75 mcg/hour Patch TD SCH (20:14)
[2021-04-05] MEDS: cefTRIAXone\\ROCEPHIN 1 GM in Sodium Chloride 0.9% 100 ML IVPB SCH (22:04)
[2021-04-05] MEDS ORDERED: Mirtazapine 15 MG TAB PO SCH (22:30)
[2021-04-06] MEDS: traMADol HCl 50 MG TAB PO PRN ×2 (02:41→20:31)
[2021-04-06] MEDS: Labetalol HCl 100 MG/20 ML VIAL SLOW IVP SCH ×6 (02:41→22:55)
[2021-04-06 04:37] LABS: #Eosinphils 0.4 thou/uL (0.0-0.7); #Lymphocytes 2.3 thou/uL (1.20-3.40); #Monocytes 0.9 thou/uL (0.11-0.59); #Neutrophils 5.5 thou/uL (1.40-6.50); %Basophils 0.5 % (0.0-1.0); %Eosinophils 4.2 % (0.0-10.0); %Lymphocytes 25.6 % (21.0-51.0); %Monocytes 9.5 % (0.0-10.0); %Neutrophils 60.3 % (42.0-75.0); Hemoglobin 9.6 g/dL (14.0-18.0); Mean Corpuscular HGB CONC 30.9 g/dL (32.0-36.0); Mean Corpuscular Hemoglobin 29.9 pg (27.0-31.0); Mean Corpuscular Volume 96.7 fL (78.0-98.0); Mean Platelet Volume 8.6 fL (7.4-10.4); Platelet Count 416 thou/uL (130-400); RBC Distribution Width 15.7 % (11.5-14.5); White Blood Cell (WBC) Count 9.1 thou/uL (4.8-10.8)
[2021-04-06 04:53] LABS: Anion Gap 14 mmol/L (10-20); BUN (Urea Nitrogen) 11 mg/dL (8.9-20.6); Calc. Creatinine Clearance 215 mL/min (70-130); Calcium 9.1 mg/dL (7.8-10.44); Carbon Dioxide 33 mmol/L (22-29); Chloride 93 mmol/L (98-107); Glucose 106 mg/dL (70-105); Potassium 3.9 mmol/L (3.5-5.1); Sodium 136 mmol/L (136-145)
[2021-04-06] MEDS: Polyethylene Glycol 3350 17 GM Packet PO SCH (08:27)
[2021-04-06] MEDS: cloNIDine 0.1 MG TAB PO SCH ×2 (08:27→20:31)
[2021-04-06] MEDS: Enoxaparin Sodium 40 MG/0.4 ML SYRINGE SC SCH ×2 (08:28→20:30)
[2021-04-06] MEDS: Aspirin Chewable 81 MG TAB PO SCH (08:28)
[2021-04-06] MEDS: predniSONE 20 MG TAB PO SCH (08:28)
[2021-04-06] MEDS: Lorazepam 1 MG TAB PO SCH ×3 (08:28→20:31)
[2021-04-06] MEDS: GUAIFENESIN SF SOLN 200 MG/10 ML UDCUP PO SCH ×2 (08:43→20:30)
[2021-04-06] MEDS: Senokot S 8.6-50 MG TAB PO SCH ×2 (08:44→20:30)
[2021-04-06] MEDS: Ascorbic Acid 500 mg Chewable Tablet PO SCH (08:45)
[2021-04-06] MEDS: Cholecalciferol 1,000 UNITS (25 MCG) TAB PO SCH (08:45)
[2021-04-06] MEDS: Amlodipine 10 MG TAB PO SCH (08:45)
[2021-04-06] MEDS: Zinc Sulfate 220 MG CAP PO SCH (08:46)
[2021-04-06] MEDS: Pantoprazole 40 MG GRANULES PACKET PER TUBE SCH ×2 (08:46→20:31)
[2021-04-06] MEDS: Temazepam 15 MG CAP PER TUBE PRN (20:30)
[2021-04-06] MEDS: Mirtazapine 15 MG TAB PO SCH (20:31)
[2021-04-07] MEDS: Labetalol HCl 100 MG/20 ML VIAL SLOW IVP SCH ×3 (03:18→11:58)
[2021-04-07 06:08] LABS: Anion Gap 14 mmol/L (10-20); BUN (Urea Nitrogen) 14 mg/dL (8.9-20.6); Calc. Creatinine Clearance 206 mL/min (70-130); Calcium 9.3 mg/dL (7.8-10.44); Carbon Dioxide 31 mmol/L (22-29); Chloride 98 mmol/L (98-107); Glucose 118 mg/dL (70-105); Potassium 4.1 mmol/L (3.5-5.1); Sodium 139 mmol/L (136-145)
[2021-04-07] MEDS: Enoxaparin Sodium 40 MG/0.4 ML SYRINGE SC SCH ×2 (07:40→21:05)
[2021-04-07] MEDS: Senokot S 8.6-50 MG TAB PO SCH ×2 (07:41→21:05)
[2021-04-07] MEDS: cloNIDine 0.1 MG TAB PO SCH ×2 (07:41→21:06)
[2021-04-07] MEDS: Ascorbic Acid 500 mg Chewable Tablet PO SCH (07:42)
[2021-04-07] MEDS: Pantoprazole 40 MG GRANULES PACKET PER TUBE SCH ×2 (07:42→21:06)
[2021-04-07] MEDS: predniSONE 20 MG TAB PO SCH (07:42)
[2021-04-07] MEDS: Zinc Sulfate 220 MG CAP PO SCH (07:42)
[2021-04-07] MEDS: Cholecalciferol 1,000 UNITS (25 MCG) TAB PO SCH (07:42)
[2021-04-07] MEDS: Lorazepam 1 MG TAB PO SCH ×3 (07:43→21:05)
[2021-04-07] MEDS: Polyethylene Glycol 3350 17 GM Packet PO SCH (07:43)
[2021-04-07] MEDS: Amlodipine 10 MG TAB PO SCH (07:43)
[2021-04-07] MEDS: Aspirin Chewable 81 MG TAB PO SCH (07:43)
[2021-04-07] MEDS: GUAIFENESIN SF SOLN 200 MG/10 ML UDCUP PO SCH ×2 (07:47→21:05)
[2021-04-07] MEDS: Benzonatate 100 MG CAP PO PRN (14:48)
[2021-04-07] MEDS: Labetalol 100 MG TAB PO SCH ×2 (14:48→21:06)
[2021-04-07] MEDS: Mirtazapine 15 MG TAB PO SCH (21:05)
[2021-04-07] MEDS: traMADol HCl 50 MG TAB PO PRN (21:18)
[2021-04-07] MEDS: Temazepam 15 MG CAP PER TUBE PRN (21:19)
[2021-04-08] MEDS: Ascorbic Acid 500 mg Chewable Tablet PO SCH (08:11)
[2021-04-08] MEDS: GUAIFENESIN SF SOLN 200 MG/10 ML UDCUP PO SCH ×2 (08:11→20:54)
[2021-04-08] MEDS: cloNIDine 0.1 MG TAB PO SCH ×2 (08:12→20:55)
[2021-04-08] MEDS: Amlodipine 10 MG TAB PO SCH (08:12)
[2021-04-08] MEDS: Aspirin Chewable 81 MG TAB PO SCH (08:12)
[2021-04-08] MEDS: Zinc Sulfate 220 MG CAP PO SCH (08:12)
[2021-04-08] MEDS: Labetalol 100 MG TAB PO SCH ×3 (08:12→20:55)
[2021-04-08] MEDS: predniSONE 20 MG TAB PO SCH (08:12)
[2021-04-08] MEDS: Senokot S 8.6-50 MG TAB PO SCH ×2 (08:12→20:55)
[2021-04-08] MEDS: Polyethylene Glycol 3350 17 GM Packet PO SCH (08:13)
[2021-04-08] MEDS: Cholecalciferol 1,000 UNITS (25 MCG) TAB PO SCH (08:13)
[2021-04-08] MEDS: Enoxaparin Sodium 40 MG/0.4 ML SYRINGE SC SCH ×2 (08:13→20:54)
[2021-04-08] MEDS: Lorazepam 1 MG TAB PO SCH ×3 (08:13→20:55)
[2021-04-08] MEDS: Pantoprazole 40 MG GRANULES PACKET PER TUBE SCH ×2 (08:13→20:55)
[2021-04-08] MEDS: Acetaminophen 650 MG/20.3 ML UDCUP PO PRN ×2 (10:12→23:09)
[2021-04-08] MEDS: traMADol HCl 50 MG TAB PO PRN (20:54)
[2021-04-08] MEDS: Temazepam 15 MG CAP PER TUBE PRN (20:55)
[2021-04-08] MEDS: Mirtazapine 15 MG TAB PO SCH (20:55)
[2021-04-09] MEDS: cloNIDine 0.1 MG TAB PO SCH ×2 (08:14→20:37)
[2021-04-09] MEDS: Pantoprazole 40 MG GRANULES PACKET PER TUBE SCH ×2 (08:14→20:39)
[2021-04-09] MEDS: Aspirin Chewable 81 MG TAB PO SCH (08:14)
[2021-04-09] MEDS: Ascorbic Acid 500 mg Chewable Tablet PO SCH (08:14)
[2021-04-09] MEDS: Senokot S 8.6-50 MG TAB PO SCH ×2 (08:14→20:38)
[2021-04-09] MEDS: Cholecalciferol 1,000 UNITS (25 MCG) TAB PO SCH (08:15)
[2021-04-09] MEDS: Lorazepam 1 MG TAB PO SCH ×3 (08:15→20:38)
[2021-04-09] MEDS: Zinc Sulfate 220 MG CAP PO SCH (08:15)
[2021-04-09] MEDS: Polyethylene Glycol 3350 17 GM Packet PO SCH (08:15)
[2021-04-09] MEDS: Amlodipine 10 MG TAB PO SCH (08:15)
[2021-04-09] MEDS: predniSONE 20 MG TAB PO SCH (08:15)
[2021-04-09] MEDS: Labetalol 100 MG TAB PO SCH ×3 (08:15→20:37)
[2021-04-09] MEDS: Enoxaparin Sodium 40 MG/0.4 ML SYRINGE SC SCH (08:21)
[2021-04-09] MEDS: GUAIFENESIN SF SOLN 200 MG/10 ML UDCUP PO SCH ×2 (08:22→20:37)
[2021-04-09] MEDS ORDERED: Lorazepam 2 MG/ML VIAL SLOW IVP SCH (13:00)
[2021-04-09] MEDS ORDERED: Lorazepam 1 MG TAB PO SCH (17:00)
[2021-04-09] MEDS: Benzonatate 100 MG CAP PO PRN (20:37)
[2021-04-09] MEDS: Mirtazapine 15 MG TAB PO SCH (20:38)
[2021-04-09] MEDS: Apixaban 2.5 MG TAB PO SCH (20:38)
[2021-04-09] MEDS: traMADol HCl 50 MG TAB PO PRN (20:38)
[2021-04-09] MEDS: Temazepam 15 MG CAP PER TUBE PRN (20:38)
[2021-04-10 04:41] LABS: Anion Gap 12 mmol/L (10-20); BUN (Urea Nitrogen) 19 mg/dL (8.9-20.6); Calc. Creatinine Clearance 214 mL/min (70-130); Calcium 9.1 mg/dL (7.8-10.44); Carbon Dioxide 29 mmol/L (22-29); Chloride 100 mmol/L (98-107); Glucose 118 mg/dL (70-105); Potassium 4.1 mmol/L (3.5-5.1); Sodium 137 mmol/L (136-145)
[2021-04-10 04:49] LABS: Hemoglobin 10.3 g/dL (14.0-18.0); Mean Corpuscular HGB CONC 31.1 g/dL (32.0-36.0); Mean Corpuscular Hemoglobin 30.2 pg (27.0-31.0); Mean Corpuscular Volume 97.1 fL (78.0-98.0); Platelet Count 425 thou/uL (130-400); RBC Distribution Width 16.3 % (11.5-14.5); Red Blood Cell (RBC) Count 3.41 mill/uL (4.70-6.10)
[2021-04-10 04:55] LABS: Band 5 % (5-11); Eosinophils 3 % (0-10); Lymphocytes 28 % (21-51); MDiff Complete? YES; Monocytes 6 % (0-10); Myelocyte 2 % (0-0); Neutrophil 56 % (42-75)
[2021-04-10] MEDS: Apixaban 2.5 MG TAB PO SCH ×2 (09:29→21:12)
[2021-04-10] MEDS: Amlodipine 10 MG TAB PO SCH (09:31)
[2021-04-10] MEDS: predniSONE 20 MG TAB PO SCH (09:31)
[2021-04-10] MEDS: cloNIDine 0.1 MG TAB PO SCH ×2 (09:31→21:12)
[2021-04-10] MEDS: Pantoprazole 40 MG GRANULES PACKET PER TUBE SCH ×2 (09:31→21:14)
[2021-04-10] MEDS: Cholecalciferol 1,000 UNITS (25 MCG) TAB PO SCH (09:32)
[2021-04-10] MEDS: Ascorbic Acid 500 mg Chewable Tablet PO SCH (09:32)
[2021-04-10] MEDS: GUAIFENESIN SF SOLN 200 MG/10 ML UDCUP PO SCH ×2 (09:32→21:12)
[2021-04-10] MEDS: Labetalol 100 MG TAB PO SCH ×3 (09:32→21:13)
[2021-04-10] MEDS: Zinc Sulfate 220 MG CAP PO SCH (09:32)
[2021-04-10] MEDS: Aspirin Chewable 81 MG TAB PO SCH (09:32)
[2021-04-10] MEDS: Senokot S 8.6-50 MG TAB PO SCH ×2 (09:33→21:14)
[2021-04-10] MEDS: Lorazepam 1 MG TAB PO SCH ×3 (09:33→21:13)
[2021-04-10] MEDS: Polyethylene Glycol 3350 17 GM Packet PO SCH (09:33)
[2021-04-10] MEDS: Mirtazapine 15 MG TAB PO SCH (21:13)
[2021-04-11 04:47] LABS: Hemoglobin 10.4 g/dL (14.0-18.0); Mean Corpuscular HGB CONC 30.4 g/dL (32.0-36.0); Mean Corpuscular Hemoglobin 29.4 pg (27.0-31.0); Mean Corpuscular Volume 96.6 fL (78.0-98.0); Platelet Count 449 thou/uL (130-400); RBC Distribution Width 16.3 % (11.5-14.5); Red Blood Cell (RBC) Count 3.55 mill/uL (4.70-6.10); White Blood Cell (WBC) Count 8.8 thou/uL (4.8-10.8)
[2021-04-11 04:59] LABS: Anion Gap 10 mmol/L (10-20); BUN (Urea Nitrogen) 20 mg/dL (8.9-20.6); Calc. Creatinine Clearance 217 mL/min (70-130); Calcium 9.4 mg/dL (7.8-10.44); Carbon Dioxide 30 mmol/L (22-29); Chloride 101 mmol/L (98-107); Glucose 131 mg/dL (70-105); Potassium 4.2 mmol/L (3.5-5.1); Sodium 137 mmol/L (136-145)
[2021-04-11 06:13] LABS: Anisocytosis SLIGHT = 6-15 cells (100X) (0-5/hpf); Band 8 % (5-11); Eosinophils 4 % (0-10); Lymphocytes 17 % (21-51); MDiff Complete? YES; Monocytes 9 % (0-10); Neutrophil 62 % (42-75)
[2021-04-11] MEDS: Polyethylene Glycol 3350 17 GM Packet PO SCH (08:08)
[2021-04-11] MEDS: cloNIDine 0.1 MG TAB PO SCH ×2 (08:08→21:15)
[2021-04-11] MEDS: Labetalol 100 MG TAB PO SCH ×3 (08:08→21:15)
[2021-04-11] MEDS: Senokot S 8.6-50 MG TAB PO SCH ×2 (08:08→21:16)
[2021-04-11] MEDS: Lorazepam 1 MG TAB PO SCH ×3 (08:08→21:16)
[2021-04-11] MEDS: Cholecalciferol 1,000 UNITS (25 MCG) TAB PO SCH (08:08)
[2021-04-11] MEDS: Zinc Sulfate 220 MG CAP PO SCH (08:09)
[2021-04-11] MEDS: Apixaban 2.5 MG TAB PO SCH ×2 (08:09→21:15)
[2021-04-11] MEDS: Ascorbic Acid 500 mg Chewable Tablet PO SCH (08:09)
[2021-04-11] MEDS: Amlodipine 10 MG TAB PO SCH (08:09)
[2021-04-11] MEDS: Pantoprazole 40 MG GRANULES PACKET PER TUBE SCH ×2 (08:09→21:16)
[2021-04-11] MEDS: predniSONE 20 MG TAB PO SCH (08:09)
[2021-04-11] MEDS: Aspirin Chewable 81 MG TAB PO SCH (08:09)
[2021-04-11] MEDS: GUAIFENESIN SF SOLN 200 MG/10 ML UDCUP PO SCH ×2 (08:15→21:15)
[2021-04-11] MEDS: Mirtazapine 15 MG TAB PO SCH (21:16)
[2021-04-12] MEDS: traMADol HCl 50 MG TAB PO PRN (00:18)
[2021-04-12] MEDS: Temazepam 15 MG CAP PER TUBE PRN (00:18)
[2021-04-12 05:04] LABS: Hemoglobin 10.9 g/dL (14.0-18.0); Mean Corpuscular HGB CONC 32.4 g/dL (32.0-36.0); Mean Corpuscular Hemoglobin 30.8 pg (27.0-31.0); Mean Corpuscular Volume 95.2 fL (78.0-98.0); Mean Platelet Volume 7.9 fL (7.4-10.4); Platelet Count 411 thou/uL (130-400); RBC Distribution Width 16.3 % (11.5-14.5); Red Blood Cell (RBC) Count 3.54 mill/uL (4.70-6.10); White Blood Cell (WBC) Count 10.7 thou/uL (4.8-10.8)
[2021-04-12 05:29] LABS: Anion Gap 11 mmol/L (10-20); BUN (Urea Nitrogen) 21 mg/dL (8.9-20.6); Calc. Creatinine Clearance 187 mL/min (70-130); Carbon Dioxide 30 mmol/L (22-29); Chloride 101 mmol/L (98-107); Glucose 126 mg/dL (70-105); Sodium 138 mmol/L (136-145)
[2021-04-12 06:11] LABS: Band 5 % (5-11); Eosinophils 2 % (0-10); Lymphocytes 28 % (21-51); MDiff Complete? YES; Monocytes 6 % (0-10); Myelocyte 1 % (0-0); Neutrophil 58 % (42-75)
[2021-04-12] MEDS: predniSONE 20 MG TAB PO SCH (08:11)
[2021-04-12] MEDS: Cholecalciferol 1,000 UNITS (25 MCG) TAB PO SCH (08:11)
[2021-04-12] MEDS: Zinc Sulfate 220 MG CAP PO SCH (08:12)
[2021-04-12] MEDS: cloNIDine 0.1 MG TAB PO SCH ×2 (08:12→20:52)
[2021-04-12] MEDS: Aspirin Chewable 81 MG TAB PO SCH (08:12)
[2021-04-12] MEDS: Amlodipine 10 MG TAB PO SCH (08:12)
[2021-04-12] MEDS: GUAIFENESIN SF SOLN 200 MG/10 ML UDCUP PO SCH ×2 (08:12→20:51)
[2021-04-12] MEDS: Pantoprazole 40 MG GRANULES PACKET PER TUBE SCH ×2 (08:12→20:52)
[2021-04-12] MEDS: Apixaban 2.5 MG TAB PO SCH ×2 (08:12→20:52)
[2021-04-12] MEDS: Labetalol 100 MG TAB PO SCH ×3 (08:12→20:52)
[2021-04-12] MEDS: Ascorbic Acid 500 mg Chewable Tablet PO SCH (08:12)
[2021-04-12] MEDS: Senokot S 8.6-50 MG TAB PO SCH ×2 (08:12→20:51)
[2021-04-12] MEDS: Polyethylene Glycol 3350 17 GM Packet PO SCH (08:13)
[2021-04-12] MEDS: Lorazepam 1 MG TAB PO SCH ×3 (08:13→20:52)
[2021-04-12] MEDS: Mirtazapine 15 MG TAB PO SCH (20:52)
[2021-04-13 04:22] LABS: Hemoglobin 10.7 g/dL (14.0-18.0); Mean Corpuscular HGB CONC 30.6 g/dL (32.0-36.0); Mean Corpuscular Hemoglobin 29.3 pg (27.0-31.0); Mean Corpuscular Volume 95.8 fL (78.0-98.0); Mean Platelet Volume 8.3 fL (7.4-10.4); Platelet Count 399 thou/uL (130-400); RBC Distribution Width 16.5 % (11.5-14.5); Red Blood Cell (RBC) Count 3.65 mill/uL (4.70-6.10); White Blood Cell (WBC) Count 7.9 thou/uL (4.8-10.8)
[2021-04-13 04:35] LABS: Anion Gap 10 mmol/L (10-20); Calc. Creatinine Clearance 233 mL/min (70-130); Calcium 9.2 mg/dL (7.8-10.44); Carbon Dioxide 30 mmol/L (22-29); Chloride 102 mmol/L (98-107); Glucose 103 mg/dL (70-105); Potassium 4.2 mmol/L (3.5-5.1); Sodium 138 mmol/L (136-145)
[2021-04-13 04:39] LABS: BUN (Urea Nitrogen) 20 mg/dL (8.9-20.6)
[2021-04-13 05:46] LABS: Band 11 % (5-11); Eosinophils 1 % (0-10); Lymphocytes 34 % (21-51); MDiff Complete? YES; Monocytes 5 % (0-10); Neutrophil 49 % (42-75)
[2021-04-13] MEDS: Cholecalciferol 1,000 UNITS (25 MCG) TAB PO SCH (08:13)
[2021-04-13] MEDS: Lorazepam 1 MG TAB PO SCH ×3 (08:13→20:10)
[2021-04-13] MEDS: Labetalol 100 MG TAB PO SCH ×3 (08:13→20:10)
[2021-04-13] MEDS: Senokot S 8.6-50 MG TAB PO SCH ×2 (08:13→20:38)
[2021-04-13] MEDS: Polyethylene Glycol 3350 17 GM Packet PO SCH (08:13)
[2021-04-13] MEDS: GUAIFENESIN SF SOLN 200 MG/10 ML UDCUP PO SCH ×2 (08:14→20:09)
[2021-04-13] MEDS: Apixaban 2.5 MG TAB PO SCH ×2 (08:14→20:10)
[2021-04-13] MEDS: Pantoprazole 40 MG GRANULES PACKET PER TUBE SCH ×2 (08:14→20:10)
[2021-04-13] MEDS: Amlodipine 10 MG TAB PO SCH (08:14)
[2021-04-13] MEDS: predniSONE 20 MG TAB PO SCH (08:14)
[2021-04-13] MEDS: Aspirin Chewable 81 MG TAB PO SCH (08:14)
[2021-04-13] MEDS: cloNIDine 0.1 MG TAB PO SCH ×2 (08:14→20:10)
[2021-04-13] MEDS: Zinc Sulfate 220 MG CAP PO SCH (08:14)
[2021-04-13] MEDS: Ascorbic Acid 500 mg Chewable Tablet PO SCH (08:15)
[2021-04-13 13:27] VITALS: BMI 23.0
[2021-04-13 15:13] VITALS: BP 122/74
[2021-04-13] MEDS: Mirtazapine 15 MG TAB PO SCH (20:10)
[2021-04-13 20:42] VITALS: TEMP 98.7
== END 2021-04-13 22:15 | DRG 4 ==
LOC: ERS 20:20 → CCU 22:27 → IMCU/EMU 02-28 13:48 → CCU 03-04 17:38
PROVIDERS: ADMIT Student in an Organized Health Care Education/Training Program; ATTEND Hospitalist
PROC: 0W9B30Z Drainage of Left Pleural Cavity with Drainage Device, Percutaneous Approach (ICD-10-PCS; principal; 2021-03-04)
PROC: 5A1955Z Respiratory Ventilation, Greater than 96 Consecutive Hours (ICD-10-PCS; 2021-03-04)
PROC: 5A09357 Assistance with Respiratory Ventilation, Less than 24 Consecutive Hours, Continuous Positive Airway Pressure (ICD-10-PCS; 2021-03-04)
PROC: 0W9930Z Drainage of Right Pleural Cavity with Drainage Device, Percutaneous Approach (ICD-10-PCS; 2021-03-06)
PROC: 0B110F4 Bypass Trachea to Cutaneous with Tracheostomy Device, Open Approach (ICD-10-PCS; 2021-03-23)
PROC: 0DH63UZ Insertion of Feeding Device into Stomach, Percutaneous Approach (ICD-10-PCS; 2021-03-23)
PROC: 0W9930Z Drainage of Right Pleural Cavity with Drainage Device, Percutaneous Approach (ICD-10-PCS; 2021-04-03)
DX: A41.89 Other specified sepsis (principal); U07.1 COVID-19; J12.82 Pneumonia due to coronavirus disease 2019; I26.99 Other pulmonary embolism without acute cor pulmonale; J96.01 Acute respiratory failure with hypoxia; J86.9 Pyothorax without fistula; J15.211 Pneumonia due to Methicillin susceptible Staphylococcus aureus; E87.1 Hypo-osmolality and hyponatremia; E87.2 Acidosis; L03.211 Cellulitis of face; K56.7 Ileus, unspecified; G72.81 Critical illness myopathy; N39.0 Urinary tract infection, site not specified; E46 Unspecified protein-calorie malnutrition; R65.20 Severe sepsis without septic shock; E66.9 Obesity, unspecified; B95.61 Methicillin susceptible Staphylococcus aureus infection as the cause of diseases classified elsewhere; I10 Essential (primary) hypertension; F41.9 Anxiety disorder, unspecified; J32.8 Other chronic sinusitis; A41.01 Sepsis due to Methicillin susceptible Staphylococcus aureus; D64.9 Anemia, unspecified; E87.6 Hypokalemia; B96.5 Pseudomonas (aeruginosa) (mallei) (pseudomallei) as the cause of diseases classified elsewhere; Z79.51 Long term (current) use of inhaled steroids; Z79.899 Other long term (current) drug therapy; Z68.23 Body mass index [BMI] 23.0-23.9, adult
CPT/HCPCS: 36415; 36416; 36600; 70450; 70470; 70487; 71045; 71260; 71275; 74230; 80048; 80053; 80202; 81001; 82728; 82805; 83605; 83735; 84100; 84145; 84478; 85007; 85025; 85027; 85379; 86140; 87040; 87070; 87077; 87086; 87149; 87186; 87205; 87449; 87497; 93306; 94002; 94003; 94150; 94640; 94660; 96365; 96367; 96372; 96375; C9113; J0692; J0696; J1100; J1200; J1650; J1956; J2060; J2185; J2250; J2270; J2405; J2540; J2700; J2704; J2765; J2920; J2930; J3010; J3370; J3475; J3480; J3490; J7050; J7512; M0249; P9047; Q0249; Q9967; S0020